=== PATIENT | female | born 1940 | race Caucasian/White ===

== ENCOUNTER → 2018-01-11 16:25 | Outpatient (REF) | payer MEDICARE, OTHER, SELFPAY | LOC: LAB 16:25 | PROVIDERS: Visit Provider Urology | DX: N99.89 Other postprocedural complications and disorders of genitourinary system (principal); R82.90 Unspecified abnormal findings in urine | CPT/HCPCS: 87086 ==

== ENCOUNTER → 2018-03-11 09:52 | Outpatient (CLI) | payer MEDICARE, OTHER, SELFPAY ==
--- NOTE | 2018-03-11 09:55 | FL_ITS ---
FL upper GI w air HISTORY: ITS.REASON: EPIGASTRIC PAIN, HX ULCER ORDERING PHYSICIAN: Delvis Colmenares PATIENT AGE: 78 years Comparison: None FINDINGS: There is a small sliding hiatal hernia. No ulcer or mass is evident within the is stomach or duodenum. Fluoroscopy time: 1 minute and 35 seconds IMPRESSION: Small sliding hiatal hernia otherwise negative upper GI
== END ==
PROVIDERS: PCP Internal Medicine; Visit Provider Internal Medicine
DX: R10.13 Epigastric pain (principal); Z87.11 Personal history of peptic ulcer disease
CPT/HCPCS: 74247

== ENCOUNTER → 2018-07-15 09:21 | Outpatient (CLI) | payer MEDICARE, OTHER, SELFPAY ==
--- NOTE | 2018-07-15 09:30 | XR_ITS ---
XR chest 2V HISTORY: ITS.REASON: COUGH,HTN ORDERING PHYSICIAN: Delvis Colmenares PATIENT AGE: 78 years COMPARISON: 04/29/2016 FINDINGS: There is mild cardiomegaly without failure. There are atelectatic changes in the left lung base. No lobar consolidation evident. There are chronic changes at the thoracolumbar junction with kyphosis similar to the previous exam. IMPRESSION: Cardiomegaly with left basilar atelectasis
== END ==
PROVIDERS: PCP Internal Medicine; Visit Provider Internal Medicine
DX: R05 Cough (principal); I10 Essential (primary) hypertension
CPT/HCPCS: 71046

== ENCOUNTER → 2018-11-15 13:44 | Outpatient (CLI) | payer MEDICARE, OTHER, SELFPAY ==
--- NOTE | 2018-11-15 14:04 | US_ITS ---
US urinary bladder CLINICAL INDICATION: Recurrent bladder infections ITS.REASON: ELEVATED CREATINE ORDERING PHYSICIAN: Delvis Colmenares PATIENT AGE: 78 years Comparison: None FINDINGS: The full bladder volume is 172 mL's. No obvious bladder mass.. Post void volume is 9 mL's. IMPRESSION: Unremarkable bladder ultrasound
--- NOTE | 2018-11-15 14:04 | US_ITS ---
US Kidney CLINICAL INDICATION: Recurrent urinary tract infection ITS.REASON: ELEVATED CREATINE ORDERING PHYSICIAN: Delvis Colmenares PATIENT AGE: 78 years Comparison: None FINDINGS: Right kidney is 9 x 5 x 6 cm. Left kidney is 9 x 4 x 4 cm. No hydronephrosis. No renal mass. There is mild bilateral renal cortical thinning. No perinephric fluid collections. IMPRESSION: Mild bilateral renal cortical thinning otherwise negative bilateral renal ultrasound
[2018-11-15 15:14] LABS: Creatinine,Serum 1.35 mg/dL (0.55-1.02)
[2018-11-15 15:17] LABS: Creatinine,Urine Random 40 mg/dL (20-320); Patient Height,Urine 65 inches; Patient Weight,Urine 175 lbs
[2018-11-15 15:30] LABS: Collection Time,Urine 24 hours; Creatinine 24 Hour,Urine 700 mg/24hr (630-2500); Creatinine Clearance Urine 33.4 mL/min (25-115); Total Volume,Urine 1750 mL (250-2400)
[2018-11-16 11:19] LABS: Total Protein 24 Hour,Urine 156 mg/24 hr (40-90); Total Protein,Urine Random 8.9 mg/dL (0.0-11.9)
== END ==
PROVIDERS: Visit Provider Internal Medicine
DX: R94.4 Abnormal results of kidney function studies (principal)
CPT/HCPCS: 36415; 76770; 76857; 82570; 82575; 84155; 84156; 84166

== ENCOUNTER → 2019-01-23 11:31 | Outpatient (CLI) | payer MEDICARE, OTHER, SELFPAY ==
[2019-01-23 11:34] LABS: Microscopic, Urine URINE MICROSCOPIC (MICROSCOPIC)
[2019-01-23 12:09] LABS: Basophils % 0.5 % (0.1-2.0); Eosinophils # 0.3 K/mm3 (0.0-0.4); Eosinophils % 5.4 % (0.1-12.0); Hematocrit 38.2 % (37.0-47.0); Lymphocytes # 1.3 K/mm3 (0.7-4.5); Lymphocytes % 20.1 % (10-50); Mean Corpuscular HGB Conc 31.5 g/dL (31.8-35.4); Mean Corpuscular Hemoglobin 31.2 pg (27.0-31.2); Mean Corpuscular Volume 98.8 fl (81-99); Monocytes # 0.3 K/mm3 (0.1-1.0); Monocytes % 4.2 % (1.7-9.3); Neutrophils # 4.4 K/mm3 (1.8-7.8); Neutrophils % 69.7 % (37.0-80.0); Platelet Count 247 K/mm3 (142-424); Red Blood Count 3.86 M/mm3 (4.20-5.40); Red Cell Distribution Width 12.4 % (11.5-17.5); White Blood Count 6.3 K/mm3 (4.8-10.8)
[2019-01-23 13:09] LABS: Appearance,Urine CLEAR (Clear); Bilirubin,Urine Negative (Negative); Blood, Urine Negative (Negative); Color,Urine YELLOW (Yellow); Glucose,Urine (UA) Negative (Negative); Ketones,Urine Negative (Negative); Leukocyte Esterase,Urine 1+ (Negative); Nitrate,Urine Negative (Negative); Protein,Urine Negative (Negative); Urobilinogen,Urine 0.2 EU/dl (0.2)
[2019-01-23 13:10] LABS: Albumin Level 3.7 gm/dL (3.4-5.0); Anion Gap 13.8 mEq/L (5-15); Blood Urea Nitrogen 22 mg/dL (7-18); Calcium 9.4 mg/dL (8.5-10.1); Carbon Dioxide 29 mmol/L (21.0-32.0); Chloride 106 mmol/L (98-107); Creatinine,Serum 1.34 mg/dL (0.55-1.02); Estimated Glomerular Filt Rate 38 ml/min (>60); GFR (African American) 46 ML/MIN (>60); Glucose 155 mg/dL (74-106); Phosphorous 3.3 mg/dL (2.4-4.9); Potassium 4.8 mmoL/L (3.5-5.1); Sodium 144 mmol/L (136-145)
[2019-01-23 13:24] LABS: Creatinine,Urine Random 112 mg/dL (20-320); Total Protein,Urine Random 14.1 mg/dL (0.0-11.9)
[2019-01-23 14:03] LABS: Bacteria,Urine Trace /lpf
[2019-01-24 06:21] LABS: Vitamin D 25 Hydroxy 11.2 ng/mL (30.0-100.0)
[2019-01-25 10:48] LABS: Parathyroid Hormone Intact 57 pg/mL (15-65)
== END ==
PROVIDERS: Visit Provider Internal Medicine Nephrology
DX: N18.3 Chronic kidney disease, stage 3 (moderate) (principal); R82.90 Unspecified abnormal findings in urine
CPT/HCPCS: 36415; 80069; 81001; 82570; 82652; 83970; 84155; 85025; 87086; 87088; 87186

== ENCOUNTER → 2019-06-07 14:16 | Outpatient (CLI) | payer MEDICARE, OTHER, SELFPAY ==
--- NOTE | 2019-06-07 14:22 | XR_ITS ---
PROCEDURE: XR CHEST 2V CLINICAL HISTORY: COUGH, SINGLE EPISODE OF HEMOPTYSIS Hemoptysis with wheezing COMPARISON: CXR CHEST(2 VIEWS-NOT PORTABLE) from 11/27/2013 CXR CHEST(2 VIEWS-NOT PORTABLE) from 04/29/2016 CXR2V XR chest 2V from 07/15/2018 FINDINGS: The cardiomediastinal silhouette and pulmonary vascularity are within normal limits. Atelectatic changes are present in the left lung base. The remaining lungs are clear Kyphosis noted in the thoracic spine at the thoracolumbar junction not significantly changed IMPRESSION: No change with no acute finding. Chronic left basilar atelectasis. Dictated by: Buzz Lin MD 06/07/2019 15:31 Electronically signed by Buzz Lin MD in [place] 06/07/2019 15:31
== END ==
PROVIDERS: PCP Internal Medicine; Visit Provider Internal Medicine
DX: R05 Cough (principal)
CPT/HCPCS: 71046

== ENCOUNTER → 2019-08-09 08:26 | Outpatient (CLI) | payer MEDICARE, OTHER, SELFPAY ==
[2019-08-09 09:06] LABS: Basophils % 0.6 % (0.1-2.0); Eosinophils # 0.4 K/mm3 (0.0-0.4); Eosinophils % 6.3 % (0.1-12.0); Hematocrit 34.5 % (37.0-47.0); Hemoglobin 10.9 g/dL (12.2-16.2); Lymphocytes # 1.4 K/mm3 (0.7-4.5); Lymphocytes % 24.4 % (10-50); Mean Corpuscular HGB Conc 31.5 g/dL (31.8-35.4); Mean Corpuscular Hemoglobin 30.4 pg (27.0-31.2); Mean Corpuscular Volume 96.5 fl (81-99); Mean Platelet Volume 7.4 fl (7.4-10.4); Monocytes # 0.3 K/mm3 (0.1-1.0); Monocytes % 4.8 % (1.7-9.3); Neutrophils # 3.7 K/mm3 (1.8-7.8); Neutrophils % 63.9 % (37.0-80.0); Platelet Count 254 K/mm3 (142-424); Red Blood Count 3.58 M/mm3 (4.20-5.40); Red Cell Distribution Width 13.2 % (11.5-17.5); White Blood Count 5.9 K/mm3 (4.8-10.8)
[2019-08-09 09:38] LABS: Creatinine,Urine Random 115 mg/dL (Not Estab.)
[2019-08-09 10:00] LABS: Albumin Level 3.8 g/dl (3.5-5.0); Chloride 104 mmol/L (98-107); Potassium 5.7 mmoL/L (3.5-5.1); Sodium 136 mmol/L (136-145)
[2019-08-09 10:03] LABS: Anion Gap 11.7 mEq/L (5-15); Blood Urea Nitrogen 36 mg/dl (7-17); Calcium 9.5 mg/dl (8.4-10.2); Carbon Dioxide 26 mmol/L (22.0-30.0); Estimated Glomerular Filt Rate 34 ml/min (>60); GFR (African American) 41 ML/MIN (>60); Glucose 228 mg/dl (74-100); Phosphorous 3.7 mg/dl (2.5-4.5)
[2019-08-10 11:53] LABS: Vitamin D 25 Hydroxy 31.1 ng/mL (30.0-100.0)
== END ==
PROVIDERS: Visit Provider Internal Medicine Nephrology
DX: N18.3 Chronic kidney disease, stage 3 (moderate) (principal)
CPT/HCPCS: 36415; 80069; 82570; 82652; 84155; 85025

== ENCOUNTER → 2020-06-10 12:09 | Outpatient (CLI) | payer MEDICARE, SELFPAY ==
[2020-06-10 13:28] LABS: Chloride 105 mmol/L (98-107)
[2020-06-10 13:29] LABS: Albumin Level 4.5 g/dl (3.5-5.0); Potassium 5.1 mmoL/L (3.5-5.1); Sodium 141 mmol/L (136-145)
[2020-06-10 13:32] LABS: Anion Gap 10.1 mEq/L (5-15); Blood Urea Nitrogen 24 mg/dl (7-17); Calcium 9.7 mg/dl (8.4-10.2); Carbon Dioxide 31 mmol/L (22.0-30.0); Estimated Glomerular Filt Rate 36 ml/min (>60); GFR (African American) 44 ML/MIN (>60); Glucose 131 mg/dl (74-100)
[2020-06-10 13:49] LABS: 25-OH Vitamin D, Total 39.4 ng/mL (30-100)
== END ==
PROVIDERS: Visit Provider Internal Medicine Nephrology
DX: N18.30 Chronic kidney disease, stage 3 unspecified (principal)
CPT/HCPCS: 36415; 80069; 82306

== ENCOUNTER → 2020-08-28 14:59 | Outpatient (CLI) | payer MEDICARE, SELFPAY ==
--- NOTE | 2020-08-28 15:14 | XR_ITS ---
PROCEDURE: XR FOOT RT MIN 3V CLINICAL INDICATION: RT FOOT PAIN, Pain and redness COMPARISON: No exams were available for comparison FINDINGS: No acute displaced fractures evident. There is cortical thickening involving the shaft of the 4th metatarsal. Cystic changes are present in the cuneiform some and in the navicular suggesting sub articular cyst/geodes. Mild osteoarthritic changes are present involving the navicular cuneiform joint Mild hallux valgus. No bony destructive process apparent. Other findings:None. IMPRESSION: 1. Degenerative changes as described above. 2. Cortical thickening of the mid shaft of the 4th metatarsal. This could be related to old fracture or stress fracture. Dictated by: Buzz Lin MD 08/28/2020 15:27 Buzz Lin MD in [place] 08/28/2020 15:27
[2020-08-28 15:22] LABS: Basophils % 0.4 % (0.1-2.0); Eosinophils # 0.4 K/mm3 (0.0-0.4); Eosinophils % 4.8 % (0.1-12.0); Hematocrit 34.5 % (37.0-47.0); Hemoglobin 11.1 g/dL (12.2-16.2); Lymphocytes # 1.5 K/mm3 (0.7-4.5); Lymphocytes % 19.8 % (10-50); Mean Corpuscular HGB Conc 32.3 g/dL (31.8-35.4); Mean Corpuscular Hemoglobin 30.9 pg (27.0-31.2); Mean Corpuscular Volume 95.7 fl (81-99); Mean Platelet Volume 7.1 fl (7.4-10.4); Monocytes # 0.4 K/mm3 (0.1-1.0); Neutrophils # 5.2 K/mm3 (1.8-7.8); Platelet Count 199 K/mm3 (142-424); Red Blood Count 3.61 M/mm3 (4.20-5.40); Red Cell Distribution Width 13.2 % (11.5-17.5); White Blood Count 7.4 K/mm3 (4.8-10.8)
[2020-08-28 15:32] LABS: Anion Gap 12.7 mEq/L (5-15); Blood Urea Nitrogen 29 mg/dl (7-17); Calcium 9.3 mg/dl (8.4-10.2); Carbon Dioxide 26 mmol/L (22.0-30.0); Chloride 105 mmol/L (98-107); Estimated Glomerular Filt Rate 33 ml/min (>60); GFR (African American) 41 ML/MIN (>60); Glucose 101 mg/dl (74-100); Potassium 5.7 mmoL/L (3.5-5.1); Sodium 138 mmol/L (136-145); Uric Acid 8.8 mg/dl (2.5-6.2)
[2020-08-28 15:44] LABS: Erythrocyte Sedimentation Rate 78 mm/hr (0-30)
== END ==
PROVIDERS: Visit Provider Internal Medicine
DX: M79.671 Pain in right foot (principal); N18.30 Chronic kidney disease, stage 3 unspecified
CPT/HCPCS: 36415; 73630; 80048; 84550; 85025; 85651

== ENCOUNTER → 2020-09-02 14:39 | Outpatient (CLI) | payer MEDICARE, SELFPAY ==
--- NOTE | 2020-09-02 14:43 | MR_ITS ---
PROCEDURE INFORMATION: Exam: MR Right Lower Extremity Other Than Joint Without Contrast; Foot Exam date and time: 09/02/2020 2:43 PM Age: 80 years old Clinical indication: Right; Patient HX: RT foot pain with reddness and swelling x1week. No injury or trauma; Additional info: Foot pain, edema TECHNIQUE: Imaging protocol: MR of the Right lower extremity without contrast. Exam focused on the foot. COMPARISON: CR XR FOOT RT MIN 3V 08/28/2020 3:16 PM FINDINGS: Bones and cartilage: Mild osteoarthritis involves the fourth tarsometatarsal joint Flexion deformities involve the toes. There is no evidence of osteomyelitis. There is severe primary osteoarthritis of the second and third tarsometatarsal joints. Thickening of the fourth metatarsal cortex also reported on radiographs suggests remote trauma. Joint spaces: A mild effusion involves the ankle joint. LIGAMENTS: Lisfranc ligament: Unremarkable. No evidence of tear. TENDONS: Flexor tendons of foot: Mild tenosynovitis involves the flexor digitorum longus tendon. Tibialis posterior tendon: Moderate tenosynovitis involves the tibialis posterior tendon. Peroneal tendons: Mild tenosynovitis involves the peroneal tendon sheath. Extensor tendons of foot: Unremarkable. No evidence of tear. Tibialis anterior tendon: Unremarkable as visualized. Achilles tendon: Mild thickening involves the distal Achilles tendon, consistent with mild tendinopathy. Tarsal canal (Sinus tarsi): The sinus tarsi has normal fat signal. Tarsal tunnel: Unremarkable. Muscles: The foot muscles demonstrate mild edema and mild atrophy. Soft tissues: Diffuse subcutaneous edema that is moderate at the level of the ankle and mild in the foot is nonspecific and could represent cellulitis or vascular insufficiency. There is no abscess. Plantar fascia: Mild thickening of the proximal plantar fascia has no significant surrounding edema, consistent with chronic mild plantar fasciitis (fasciopathy). IMPRESSION: 1. Rdum-df-mwanrsok diffuse subcutaneous edema indeterminate for cellulitis versus vascular insufficiency. 2. 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 3. Multifocal mild to moderate tenosynovitis. 4. Mild Achilles tendinopathy. 5. Chronic mild plantar fasciitis (fasciopathy). 6. No acute fracture, abscess, or osteomyelitis.
== END ==
PROVIDERS: PCP Internal Medicine; Visit Provider Internal Medicine
DX: M79.671 Pain in right foot (principal); R60.0 Localized edema
CPT/HCPCS: 73718

== ENCOUNTER → 2020-09-16 15:11 | Outpatient (CLI) | payer MEDICARE, SELFPAY ==
[2020-09-16 16:15] VITALS: PULSE 72
== END ==
PROVIDERS: PCP Internal Medicine; Visit Provider Internal Medicine Pulmonary Disease
DX: R06.09 Other forms of dyspnea (principal)
CPT/HCPCS: 94060; 94640; 94726; 94729

== ENCOUNTER → 2021-05-05 13:18 | Outpatient (CLI) | payer MEDICARE, SELFPAY ==
[2021-05-05 13:57] LABS: Basophils % 0.5 % (0.1-2.0); Eosinophils # 0.4 K/mm3 (0.0-0.4); Eosinophils % 6.3 % (0.1-12.0); Hematocrit 35.8 % (37.0-47.0); Hemoglobin 11.3 g/dL (12.2-16.2); Lymphocytes # 1.3 K/mm3 (0.7-4.5); Lymphocytes % 21.9 % (10-50); Mean Corpuscular HGB Conc 31.6 g/dL (31.8-35.4); Mean Corpuscular Hemoglobin 30.7 pg (27.0-31.2); Mean Corpuscular Volume 97.2 fl (81-99); Mean Platelet Volume 8.6 fl (7.4-10.4); Monocytes # 0.4 K/mm3 (0.1-1.0); Monocytes % 6.3 % (1.7-9.3); Neutrophils # 3.9 K/mm3 (1.8-7.8); Platelet Count 245 K/mm3 (142-424); Red Blood Count 3.69 M/mm3 (4.20-5.40); Red Cell Distribution Width 13.3 % (11.5-17.5)
[2021-05-05 14:45] LABS: Chloride 104 mmol/L (98-107); Potassium 4.7 mmoL/L (3.5-5.1); Sodium 140 mmol/L (136-145)
[2021-05-05 14:47] LABS: Blood Urea Nitrogen 19 mg/dl (7-17); Estimated Glomerular Filt Rate 43 ml/min (>60); GFR (African American) 52 ML/MIN (>60)
[2021-05-05 14:48] LABS: Alanine Aminotransferase 13 U/L (12-78); Albumin Level 3.8 g/dl (3.5-5.0); Albumin/Globulin Ratio 1.7 (1.1-1.8); Alkaline Phosphatase 95 U/L (38-126); Anion Gap 7.7 mEq/L (5-15); Aspartate Amino Transferase 23 U/L (14-36); Bilirubin,Total 0.4 mg/dl (0.2-1.3); Calcium 8.9 mg/dl (8.4-10.2); Carbon Dioxide 33 mmol/L (22.0-30.0); Globulin 2.2 g/dL (1.3-3.2); Glucose 106 mg/dl (74-100)
[2021-05-05 14:58] LABS: Creatinine,Urine Random 83 mg/dL (Not Estab.)
[2021-05-05 16:02] LABS: Hemoglobin A1C 5.9 % (4.0-6.0)
== END ==
PROVIDERS: Visit Provider Internal Medicine
DX: I10 Essential (primary) hypertension (principal); N19 Unspecified kidney failure; E11.42 Type 2 diabetes mellitus with diabetic polyneuropathy; M15.0 Primary generalized (osteo)arthritis; Z79.84 Long term (current) use of oral hypoglycemic drugs
CPT/HCPCS: 80053; 82043; 82570; 83036; 85025

== ENCOUNTER → 2021-06-03 08:51 | Outpatient (CLI) | payer MEDICARE, SELFPAY ==
--- NOTE | 2021-06-03 08:58 | XR_ITS ---
FINAL REPORT TECHNIQUE: Bone mineral density was calculated of the lumbar spine and hip. CLINICAL HISTORY: . 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 Using the left hip, the bone mineral density of the femoral neck is 0.661 g/cm2, corresponding to a T-score of -1.7. There is a 13% risk of major osteoporotic fracture and 3.3% risk of hip fracture based on FRAX data NOTE: T-score: Standard deviation compared with peak bone mass of young adult mean. *Following the recommendations of the International Society of Bone densitometry, classification of hip BMD is based on the lower of two T-scores; total hip or femoral neck. IMPRESSION: Diminished bone mineral density of the lumbar spine and left hip consistent with osteopenia. There is a 13% risk of major osteoporotic fracture and 3.3% risk of hip fracture based on FRAX data. Reviewed, Interpreted and Dictated by Franco Valencia III, MD Transcribed by Geraldine Garcia Authenticated by Franco Valencia III, MD on 06/03/2021 11:40:53 AM [facility]
== END ==
PROVIDERS: PCP Internal Medicine; Visit Provider Internal Medicine Nephrology
DX: Z78.0 Asymptomatic menopausal state (principal); N18.30 Chronic kidney disease, stage 3 unspecified
CPT/HCPCS: 77080

== ENCOUNTER → 2021-06-19 09:36 | Outpatient (CLI) | payer MEDICARE, SELFPAY ==
[2021-06-19 10:36] LABS: Basophils % 0.7 % (0.1-2.0); Eosinophils # 0.5 K/mm3 (0.0-0.4); Eosinophils % 8.3 % (0.1-12.0); Hematocrit 34.6 % (37.0-47.0); Hemoglobin 11.3 g/dL (12.2-16.2); Lymphocytes # 1.2 K/mm3 (0.7-4.5); Lymphocytes % 19.6 % (10-50); Mean Corpuscular HGB Conc 32.5 g/dL (31.8-35.4); Mean Corpuscular Hemoglobin 30.5 pg (27.0-31.2); Mean Corpuscular Volume 93.8 fl (81-99); Mean Platelet Volume 7.1 fl (7.4-10.4); Monocytes # 0.4 K/mm3 (0.1-1.0); Monocytes % 5.8 % (1.7-9.3); Neutrophils % 65.7 % (37.0-80.0); Platelet Count 232 K/mm3 (142-424); Red Blood Count 3.69 M/mm3 (4.20-5.40); Red Cell Distribution Width 12.6 % (11.5-17.5)
[2021-06-19 11:38] LABS: Anion Gap 10.7 mEq/L (5-15); Blood Urea Nitrogen 29 mg/dl (7-17); Carbon Dioxide 30 mmol/L (22.0-30.0); Chloride 103 mmol/L (98-107); Estimated Glomerular Filt Rate 36 ml/min (>60); GFR (African American) 44 ML/MIN (>60); Glucose 127 mg/dl (74-100); Phosphorous 3.8 mg/dl (2.5-4.5); Potassium 4.7 mmoL/L (3.5-5.1); Sodium 139 mmol/L (136-145)
[2021-06-19 11:50] LABS: Intact Parathyroid Hormone 102.1 pg/mL (7.5-53.5)
[2021-06-19 11:56] LABS: 25-OH Vitamin D, Total 41.2 ng/mL (30-100)
== END ==
PROVIDERS: Visit Provider Internal Medicine Nephrology
DX: N18.30 Chronic kidney disease, stage 3 unspecified (principal)
CPT/HCPCS: 36415; 80069; 82306; 83970; 85025

== ENCOUNTER → 2021-06-23 11:48 | Outpatient (POV) | payer MEDICARE, SELFPAY | PROVIDERS: Visit Provider Internal Medicine Nephrology | DX: Z00.00 Encounter for general adult medical examination without abnormal findings (principal) ==

== ENCOUNTER → 2021-09-15 14:19 | Outpatient (CLI) | payer MEDICARE, OTHER, SELFPAY | PROVIDERS: PCP Internal Medicine; Visit Provider Internal Medicine | DX: R39.0 Extravasation of urine (principal); B96.20 Unspecified Escherichia coli [E. coli] as the cause of diseases classified elsewhere | CPT/HCPCS: 87086; 87088; 87186 ==

== ENCOUNTER → 2021-11-05 14:17 | Outpatient (CLI) | payer MEDICARE, OTHER, SELFPAY ==
[2021-11-05 15:16] LABS: Chloride 106 mmol/L (98-107); Potassium 4.8 mmoL/L (3.5-5.1); Sodium 138 mmol/L (136-145)
[2021-11-05 15:18] LABS: Blood Urea Nitrogen 32 mg/dl (7-17); Estimated Glomerular Filt Rate 36 ml/min (>60); GFR (African American) 44 ML/MIN (>60)
[2021-11-05 15:19] LABS: Alanine Aminotransferase 12 U/L (12-78); Albumin Level 3.7 g/dl (3.5-5.0); Albumin/Globulin Ratio 1.8 (1.1-1.8); Alkaline Phosphatase 72 U/L (38-126); Anion Gap 8.8 mEq/L (5-15); Aspartate Amino Transferase 25 U/L (14-36); Bilirubin,Total 0.3 mg/dl (0.2-1.3); Carbon Dioxide 28 mmol/L (22.0-30.0); Cholesterol 151 mg/dl (140-200); Globulin 2.1 g/dL (1.3-3.2); Total Protein,Serum 5.8 g/dl (6.3-8.2); Triglycerides 124 mg/dl (30-150); VLDL Cholesterol 25 mg/dL (0-40)
[2021-11-05 15:20] LABS: Calcium 8.7 mg/dl (8.4-10.2); Chol/HDL Ratio 2.8 (1-3.5); Glucose 119 mg/dl (74-100); HDL Cholesterol 54 mg/dl (40-60)
[2021-11-05 15:21] LABS: Hemoglobin A1C 6.2 % (4.0-6.0)
[2021-11-05 15:29] LABS: Microalbumin/Creatinine Ratio 8.3
[2021-11-05 15:31] LABS: Direct LDL Cholesterol 80.11 mg/dL (100-129)
[2021-11-05 15:34] LABS: Creatinine,Urine Random 80 mg/dL (Not Estab.)
== END ==
PROVIDERS: PCP Internal Medicine; Visit Provider Internal Medicine
DX: E11.42 Type 2 diabetes mellitus with diabetic polyneuropathy (principal); I10 Essential (primary) hypertension; E78.5 Hyperlipidemia, unspecified; N39.0 Urinary tract infection, site not specified; M15.0 Primary generalized (osteo)arthritis
CPT/HCPCS: 80053; 80061; 82043; 82570; 83036

== ENCOUNTER → 2021-12-16 16:44 | Outpatient (CLI) | payer MEDICARE, OTHER, SELFPAY | PROVIDERS: PCP Internal Medicine; Visit Provider Internal Medicine | DX: N39.0 Urinary tract infection, site not specified (principal) | CPT/HCPCS: 87086 ==

== ENCOUNTER → 2022-03-16 10:02 | Outpatient (CLI) | payer MEDICARE, OTHER, SELFPAY ==
[2022-03-16 10:12] LABS: Microscopic, Urine URINE MICROSCOPIC (MICROSCOPIC)
[2022-03-16 10:38] LABS: Appearance,Urine CLEAR (Clear); Basophils # 0.1 K/mm3 (0-0.2); Basophils % 0.8 % (0.1-2.0); Bilirubin,Urine Negative (Negative); Blood, Urine TRACE-I (Negative); Color,Urine YELLOW (Yellow); Eosinophils # 0.3 K/mm3 (0.0-0.4); Eosinophils % 4.7 % (0.1-12.0); Glucose,Urine (UA) Negative (Negative); Hematocrit 35.7 % (37.0-47.0); Hemoglobin 11.4 g/dL (12.2-16.2); Ketones,Urine Negative (Negative); Leukocyte Esterase,Urine TRACE (Negative); Lymphocytes # 1.5 K/mm3 (0.7-4.5); Lymphocytes % 22.3 % (10-50); Mean Corpuscular Hemoglobin 30.6 pg (27.0-31.2); Mean Corpuscular Volume 95.8 fl (81-99); Mean Platelet Volume 8.2 fl (7.4-10.4); Monocytes # 0.4 K/mm3 (0.1-1.0); Monocytes % 5.3 % (1.7-9.3); Neutrophils # 4.5 K/mm3 (1.8-7.8); Neutrophils % 66.9 % (37.0-80.0); Nitrate,Urine Negative (Negative); Platelet Count 242 K/mm3 (142-424); Protein,Urine Negative (Negative); Red Blood Count 3.73 M/mm3 (4.20-5.40); Red Cell Distribution Width 13.8 % (11.5-17.5); Urobilinogen,Urine 0.2 EU/dl (0.2); White Blood Count 6.7 K/mm3 (4.8-10.8)
[2022-03-16 10:52] LABS: Bacteria,Urine Trace /lpf; RBC,Urine Occasional #/hpf (0-3); Squamous Epithelial Cell,Urine Occasional #/hpf (0-5)
[2022-03-16 10:59] LABS: Creatinine,Urine Random 103 mg/dL (Not Estab.)
[2022-03-16 11:05] LABS: Iron 63 ug/dL (37-170)
[2022-03-16 11:15] LABS: Total Iron Binding Capacity 318 ug/dL (265-497)
[2022-03-16 11:40] LABS: Ferritin 15.9 ng/ml (11.1-264)
[2022-03-19 21:20] LABS: C-Telopeptide Serum 300 pg/mL (.)
[2022-03-23 12:47] LABS: Albumin Level 3.9 g/dl (3.5-5.0); Chloride 105 mmol/L (98-107); Potassium 5.1 mmoL/L (3.5-5.1); Sodium 144 mmol/L (136-145)
[2022-03-23 12:49] LABS: Blood Urea Nitrogen 28 mg/dl (7-17); Estimated Glomerular Filt Rate 33 ml/min (>60); GFR (African American) 40 ML/MIN (>60)
[2022-03-23 12:50] LABS: Anion Gap 24.1 mEq/L (5-15); Calcium 9.7 mg/dl (8.4-10.2); Carbon Dioxide 20 mmol/L (22.0-30.0); Glucose 140 mg/dl (74-100); Phosphorous 3.8 mg/dl (2.5-4.5)
== END ==
PROVIDERS: PCP Internal Medicine; Visit Provider Internal Medicine Nephrology
DX: N18.30 Chronic kidney disease, stage 3 unspecified (principal); E11.22 Type 2 diabetes mellitus with diabetic chronic kidney disease; M81.0 Age-related osteoporosis without current pathological fracture; Z79.84 Long term (current) use of oral hypoglycemic drugs
CPT/HCPCS: 36415; 80069; 81001; 82523; 82570; 82728; 83540; 83550; 84075; 84080; 84155; 85025

== ENCOUNTER → 2022-03-18 11:53 | Outpatient (CLI) | payer MEDICARE, OTHER, SELFPAY ==
[2022-03-18 12:42] LABS: Basophils # 0.1 K/mm3 (0-0.2); Basophils % 0.8 % (0.1-2.0); Eosinophils # 0.3 K/mm3 (0.0-0.4); Eosinophils % 4.8 % (0.1-12.0); Hematocrit 33.9 % (37.0-47.0); Hemoglobin 11.2 g/dL (12.2-16.2); Lymphocytes # 1.8 K/mm3 (0.7-4.5); Mean Corpuscular HGB Conc 33.1 g/dL (31.8-35.4); Mean Corpuscular Hemoglobin 31.5 pg (27.0-31.2); Mean Corpuscular Volume 95.2 fl (81-99); Mean Platelet Volume 8.1 fl (7.4-10.4); Monocytes # 0.3 K/mm3 (0.1-1.0); Monocytes % 5.9 % (1.7-9.3); Neutrophils # 3.1 K/mm3 (1.8-7.8); Neutrophils % 56.5 % (37.0-80.0); Platelet Count 244 K/mm3 (142-424); Red Blood Count 3.56 M/mm3 (4.20-5.40); Red Cell Distribution Width 14.3 % (11.5-17.5); White Blood Count 5.5 K/mm3 (4.8-10.8)
[2022-03-18 13:42] LABS: Creatine Kinase 43 U/L (30-135)
[2022-03-18 14:12] LABS: Thyroid Stimulating Hormone 1.88 uIU/mL (0.465-4.68)
[2022-03-18 14:31] LABS: Vitamin B12 180 pg/mL (239-931)
[2022-03-18 15:39] LABS: Erythrocyte Sedimentation Rate 28 mm/hr (0-30)
== END ==
PROVIDERS: PCP Internal Medicine; Visit Provider Internal Medicine
DX: I10 Essential (primary) hypertension (principal); E11.42 Type 2 diabetes mellitus with diabetic polyneuropathy; K03.9 Disease of hard tissues of teeth, unspecified; M79.604 Pain in right leg; M79.605 Pain in left leg; M47.27 Other spondylosis with radiculopathy, lumbosacral region; Z79.84 Long term (current) use of oral hypoglycemic drugs
CPT/HCPCS: 82550; 82607; 84443; 85025; 85651

== ENCOUNTER → 2022-03-23 12:42 | Outpatient (POV) | payer MEDICARE, OTHER, SELFPAY | PROVIDERS: Visit Provider Internal Medicine Nephrology | DX: Z00.00 Encounter for general adult medical examination without abnormal findings (principal) ==

== ENCOUNTER → 2022-05-20 12:44 | Outpatient (CLI) | payer MEDICARE, OTHER, SELFPAY ==
[2022-05-20 14:17] LABS: Basophils % 0.7 % (0.1-2.0); Chloride 106 mmol/L (98-107); Eosinophils # 0.3 K/mm3 (0.0-0.4); Eosinophils % 5.3 % (0.1-12.0); Hematocrit 35.2 % (37.0-47.0); Hemoglobin 11.5 g/dL (12.2-16.2); Lymphocytes # 1.6 K/mm3 (0.7-4.5); Lymphocytes % 27.5 % (10-50); Mean Corpuscular HGB Conc 32.6 g/dL (31.8-35.4); Mean Corpuscular Hemoglobin 30.8 pg (27.0-31.2); Mean Corpuscular Volume 94.6 fl (81-99); Mean Platelet Volume 8.5 fl (7.4-10.4); Monocytes # 0.4 K/mm3 (0.1-1.0); Monocytes % 6.7 % (1.7-9.3); Neutrophils # 3.4 K/mm3 (1.8-7.8); Neutrophils % 59.7 % (37.0-80.0); Platelet Count 250 K/mm3 (142-424); Potassium 4.7 mmoL/L (3.5-5.1); Red Blood Count 3.72 M/mm3 (4.20-5.40); Red Cell Distribution Width 13.4 % (11.5-17.5); Sodium 139 mmol/L (136-145); White Blood Count 5.8 K/mm3 (4.8-10.8)
[2022-05-20 14:19] LABS: Alanine Aminotransferase 16 U/L (12-78); Blood Urea Nitrogen 28 mg/dl (7-17); Estimated Glomerular Filt Rate 36 ml/min (>60); GFR (African American) 44 ML/MIN (>60)
[2022-05-20 14:20] LABS: Albumin/Globulin Ratio 1.9 (1.1-1.8); Alkaline Phosphatase 74 U/L (38-126); Anion Gap 9.7 mEq/L (5-15); Aspartate Amino Transferase 26 U/L (14-36); Bilirubin,Total 0.6 mg/dl (0.2-1.3); Calcium 8.6 mg/dl (8.4-10.2); Carbon Dioxide 28 mmol/L (22.0-30.0); Chol/HDL Ratio 2.7 (1-3.5); Cholesterol 162 mg/dl (140-200); Globulin 2.1 g/dL (1.3-3.2); Glucose 108 mg/dl (74-100); HDL Cholesterol 60 mg/dl (40-60); Total Protein,Serum 6.1 g/dl (6.3-8.2); Triglycerides 126 mg/dl (30-150); VLDL Cholesterol 25 mg/dL (0-40)
== END ==
PROVIDERS: PCP Internal Medicine; Visit Provider Internal Medicine
DX: I10 Essential (primary) hypertension (principal); N18.30 Chronic kidney disease, stage 3 unspecified; E53.8 Deficiency of other specified B group vitamins; E78.5 Hyperlipidemia, unspecified; E11.42 Type 2 diabetes mellitus with diabetic polyneuropathy; M15.0 Primary generalized (osteo)arthritis; Z79.84 Long term (current) use of oral hypoglycemic drugs
CPT/HCPCS: 80053; 80061; 83036; 85025

== ENCOUNTER 2022-09-16 12:35 | Emergency (ER) | payer MEDICARE, SELFPAY ==
[2022-09-16 12:42] VITALS: BP 146/71; PULSE 60; RESP 18; TEMP 36.6; O2SAT 95; BMI 31.8
--- NOTE | 2022-09-16 12:42 | XR_ITS ---
FINAL REPORT CLINICAL HISTORY: fall FINDINGS: Right shoulder Four views were obtained. There is a comminuted, mildly impacted fracture of the humeral head and neck. There is no dislocation. There is mild acromioclavicular and glenohumeral joint degenerative change. IMPRESSION: Fractures as above. Reviewed, Interpreted and Dictated by Franco Valencia III, MD Transcribed by Geraldine Garcia Authenticated and [facility]
--- NOTE | 2022-09-16 12:47 | XR_ITS ---
FINAL REPORT CLINICAL HISTORY: fall FINDINGS: Right clavicle Two views were obtained. There are mildly comminuted fractures of the humeral head and neck. No acute clavicle fracture is identified. There is mild AC joint degenerative change. IMPRESSION: Fractures as above. Reviewed, Interpreted and Dictated by Franco Valencia III, MD Transcribed by Geraldine Garcia Authenticated and [facility]
--- NOTE | 2022-09-16 12:47 | XR_ITS ---
FINAL REPORT CLINICAL HISTORY: fall FINDINGS: Right humerus Two views were obtained. There are comminuted fractures of the humeral head and neck. The distal humerus appears intact. IMPRESSION: Comminuted fractures of the humeral head and neck. Reviewed, Interpreted and Dictated by Franco Valencia III, MD Transcribed by Geraldine Garcia Authenticated and [facility]
--- NOTE | 2022-09-16 13:13 | EXP.UTC ---
Discharge Plan Disposition Patient Disposition: Home, Self-Care Condition: Good Prescriptions Prescriptions: No Action losartan 100 mg tablet 100 mg PO DAILY melatonin 10 mg tablet 10 mg PO DAILY cholecalciferol (vitamin D3) 50 mcg (2,000 unit) capsule 50 mcg PO DAILY albuterol sulfate 90 mcg/actuation HFA aerosol inhaler 1 inh INHALATION QID PRN (Reason: shortness of breath or wheezing) Qty: 8.5 12RF azelastine 205.5 mcg (0.15 %) spray,non-aerosol 2 spray INTRANASAL HS Qty: 30 6RF Rx Instructions: administer into each nostril fluticasone propionate [Flonase Allergy Relief] 50 mcg/actuation spray,suspension 1 spray INTRANASAL DAILY Qty: 16 6RF Rx Instructions: administer into each nostril Zyrtec 10 mg capsule 5 mg PO DAILY PRN (Reason: allergy symptoms) Qty: 30 0RF Dulera 100-5 mcg/actuation HFA aerosol inhaler 2 puff INHALATION BID Qty: 13 12RF omeprazole 40 mg capsule,delayed release(DR/EC) 40 mg PO DAILY Qty: 30 12RF atenolol 25 mg tablet 25 mg PO DAILY citalopram 20 mg tablet 20 mg PO DAILY gabapentin 300 mg capsule 300 mg PO Q8H metformin 500 mg tablet 500 mg PO BID tramadol 50 mg tablet 50 mg PO Q6H PRN hydrochlorothiazide 25 mg tablet 12.5 mg PO DAILY lovastatin 10 mg tablet 40 mg PO DAILY Referrals Follow up/Referrals: Delvis Colmenares MD [Primary Care Provider] - See instructions Reece Suazo MD [Physician] - 09/18/22 11:00 am (your appointment) Activity Restrictions/Add. Instructions Additional Instructions/Restrictions: *RICE, Rest the extremity, Ice 15-20 minutes 3-4 times daily, Compress- wear the juan antonio wrap as discussed as much as possible to help reduce swelling and pain, Elevate the extremity when at rest *Sling/Shoulder immobilizer is for support and help control swelling, Be sure that is not to tight but not to loose either *Elevate when resting? * Tylenol for pain Immediately follow up with your family doctor for new or worsening of symptoms, or no noticeable improvement over the next 3-5 days You have an appointment in the [facility] for [facility] at 11am with Dr Suazo Clinical Impressions Clinical Impression: Fracture of humeral head Instructions Patient Instructions: How To Perform RICE (Rest, Ice, Compress, Elevate), DI for Humeral Fracture, How to Use a Shoulder Immobilizer Discharge ED Provider: Andreina Lozano [facility] General Stated complaint: Fall 09/16 RT shoulder pain Mode of Arrival: Ambulatory Source of Information: Patient Limitations: No Limitations Time Seen by Provider: 09/16/22 13:14 Description of Symptoms (Recalled from Triage Doc. by RN): Patient states she was at [facility] in [place] when she tripped over her bags and fell injuring her right shoulder. History of Present Illness Provider Complaint: Patient states that she was in the parking lot of [facility] in [place] when she tripped over her bags and fell landing on her right shoulder States that since falling she cannot move her right upper arm/shoulder area due to severe pain denies any other injury Related Data Home Medications Medication Instructions Recorded Confirmed atenolol 25 mg tablet 25 mg PO DAILY 07/06/17 09/24/20 citalopram 20 mg tablet 20 mg PO DAILY 07/06/17 09/24/20 gabapentin 300 mg capsule 300 mg PO Q8H 07/06/17 09/24/20 metformin 500 mg tablet 500 mg PO BID 07/06/17 09/24/20 tramadol 50 mg tablet 50 mg PO Q6H PRN 07/06/17 09/24/20 cholecalciferol (vitamin D3) 50 50 mcg PO DAILY 08/23/20 09/24/20 mcg (2,000 unit) capsule hydrochlorothiazide 25 mg tablet 12.5 mg PO DAILY 08/23/20 09/24/20 losartan 100 mg tablet 100 mg PO DAILY 08/23/20 09/24/20 lovastatin 10 mg tablet 40 mg PO DAILY 08/23/20 09/24/20 melatonin 10 mg tablet 10 mg PO DAILY 08/23/20 09/24/20 Previous Rx's Medication Instructions Recorded albuterol sulfate 90 mcg/actuation 1 inh inhalation QID PRN
[2022-09-16 15:21] VITALS: BP 146/71; PULSE 60; RESP 18; TEMP 36.6
== END 2022-09-16 15:23 | disposition home or self-care (01) ==
PROVIDERS: Emergency Provider Nurse Practitioner; PCP Internal Medicine
DX: S42.291A Other displaced fracture of upper end of right humerus, initial encounter for closed fracture (principal); W01.10XA Fall on same level from slipping, tripping and stumbling with subsequent striking against unspecified object, initial encounter
CPT/HCPCS: 73000; 73030; 73060; 99204; 99212; G0463

== ENCOUNTER → 2022-10-07 10:50 | Outpatient (CLI) | payer MEDICARE, SELFPAY ==
--- NOTE | 2022-10-07 10:56 | XR_ITS ---
FINAL REPORT CLINICAL HISTORY: rt shoulder pain, fall 3 weeks ago COMPARISON: 09/16/2022 FINDINGS: Two views of the right shoulder show show redemonstration of comminuted fractures of the humeral head and neck with mild displacement, similar to the prior study. There is inferior displacement of the humeral head probably due to pseudosubluxation from joint effusion. IMPRESSION: Stable appearance comminuted proximal humeral fractures. Reviewed, Interpreted and Dictated by Yo Loomis MD Transcribed by Karla Caldera Authenticated and [facility]
== END ==
PROVIDERS: PCP Internal Medicine; Visit Provider Orthopaedic Surgery
DX: S42.201A Unspecified fracture of upper end of right humerus, initial encounter for closed fracture (principal); M25.511 Pain in right shoulder
CPT/HCPCS: 73030

== ENCOUNTER → 2022-11-04 12:58 | Outpatient (CLI) | payer MEDICARE, SELFPAY ==
--- NOTE | 2022-11-04 13:02 | XR_ITS ---
FINAL REPORT CLINICAL HISTORY: Rt shoulder pain COMPARISON: 10/07/2022 FINDINGS: Right shoulder Three views were obtained. There is no acute fracture or dislocation. There are subacute fractures of the humeral head and neck. There is increased callus formation since the prior. There are mild AC and glenohumeral joint degenerative changes. There is inferior subluxation of the humerus at the glenohumeral joint which may reflect a joint effusion. IMPRESSION: Interval healing of the proximal humeral fractures. Reviewed, Interpreted and Dictated by Franco Valencia III, MD Transcribed by Geraldine Garcia Authenticated and [facility]
== END ==
PROVIDERS: PCP Internal Medicine; Visit Provider Orthopaedic Surgery
DX: S42.201A Unspecified fracture of upper end of right humerus, initial encounter for closed fracture (principal); M25.511 Pain in right shoulder
CPT/HCPCS: 73030

== ENCOUNTER → 2022-11-17 12:13 | Outpatient (CLI) | payer MEDICARE, SELFPAY ==
[2022-11-17 13:24] LABS: Hemoglobin A1C 5.9 % (4.0-6.0)
[2022-11-17 13:44] LABS: Alanine Aminotransferase 15 U/L (12-78); Albumin/Globulin Ratio 1.9 (1.1-1.8); Alkaline Phosphatase 98 U/L (38-126); Anion Gap 10.2 mEq/L (5-15); Aspartate Amino Transferase 23 U/L (14-36); Bilirubin,Total 0.4 mg/dl (0.2-1.3); Blood Urea Nitrogen 28 mg/dl (7-17); Calcium 9.1 mg/dl (8.4-10.2); Carbon Dioxide 31 mmol/L (22.0-30.0); Chloride 105 mmol/L (98-107); Chol/HDL Ratio 2.5 (1-3.5); Cholesterol 145 mg/dl (140-200); Estimated Glomerular Filt Rate 39 ml/min (>60); GFR (African American) 48 ML/MIN (>60); Globulin 2.1 g/dL (1.3-3.2); Glucose 105 mg/dl (74-100); HDL Cholesterol 59 mg/dl (40-60); Potassium 5.2 mmoL/L (3.5-5.1); Sodium 141 mmol/L (136-145); Total Protein,Serum 6.1 g/dl (6.3-8.2); Triglycerides 150 mg/dl (30-150); VLDL Cholesterol 30 mg/dL (0-40)
[2022-11-17 13:56] LABS: Direct LDL Cholesterol 67.03 mg/dL (100-129)
[2022-11-17 14:15] LABS: Creatinine,Urine Random 75 mg/dL (Not Estab.); Microalbumin/Creatinine Ratio 66.4
== END ==
PROVIDERS: PCP Internal Medicine; Visit Provider Internal Medicine
DX: E11.42 Type 2 diabetes mellitus with diabetic polyneuropathy (principal); E78.5 Hyperlipidemia, unspecified; I10 Essential (primary) hypertension; N19 Unspecified kidney failure; M15.0 Primary generalized (osteo)arthritis; Z79.84 Long term (current) use of oral hypoglycemic drugs
CPT/HCPCS: 80053; 80061; 82043; 82570; 83036

== ENCOUNTER → 2022-12-02 08:41 | Outpatient (CLI) | payer MEDICARE, SELFPAY ==
--- NOTE | 2022-12-02 08:45 | XR_ITS ---
FINAL REPORT CLINICAL HISTORY: Rt shoulder fx COMPARISON: 11/04/2022 FINDINGS: RIGHT SHOULDER SERIES Three views of the right shoulder were obtained. There is a comminuted fracture of the humeral head, which is stable. There is mild degenerative change. The overall appearance of the right shoulder is stable. There is no soft tissue abnormality. IMPRESSION: Stable comminuted fracture of the humeral head. Mild degenerative change. Reviewed, Interpreted and Dictated by Franco Valencia III, MD Transcribed by Jason Aranda Authenticated and [facility]
== END ==
PROVIDERS: PCP Internal Medicine; Visit Provider Orthopaedic Surgery
DX: M25.511 Pain in right shoulder (principal)
CPT/HCPCS: 73030

== ENCOUNTER 2022-12-07 15:00 | Outpatient (RCR) | payer MEDICARE, SELFPAY ==
--- NOTE | 2022-10-26 12:26 | HMH.PTOPEV ---
PT Outpatient Evaluation Rehab PT Outpatient Evaluation Start: 10/26/22 11:02 Freq: Status: Active Protocol: Document 10/26/22 11:02 PDESEROUX (Rec: 10/26/22 12:26 PDESEROUX [id number]) E-signed By Jose Armando Alvarado, PT Outpatient Therapy Subjective History Subjective History Pt. is a 82 year old female who presents to [facility] in [place] for the initial evaluation this date(10/26/22) w/ c/o subacute and constant RUE shldr. and elbow P!, edema , and stiffness of traumatic onset after falling onto the RUE shldr. on 09/16/22. Pt. reports falling onto her RUE shldr. in the [employer] parking lot after getting her feet tangled up in some bags. Recent diagnostic imaging positive for a fracture per pt . report. Pt. reports her fall will be 6 weeks from this coming Wednesday(10/28/22). Pt . reports being instructed to be in her sling maybe until December per pt. report. Pt. reports she's been squeezing a stress ball and rotating her forearm that seem to have been helping. Pt. reports symptoms have improved some since DOI. Pt. RTMD 11/04/22. Pt. reports bring in her list of medications and PMH(surgeries) upon return. PMH includes DM- II, Hysterectomy, and 33% kidney function. Chief Complaint Pain,Spasms,Stiff,Swelling, Weakness Symptom Type Ache,Sharp,Dull,Stabbing, Burning,Shooting Symptoms Relieved By Rest/Positioning,Ice,OTC Meds, Prescription Meds Symptoms Aggravated By Supine,Physical Activity, Twisting,Lifting Prior Functional Limitations None Current Functional Limitations Reaching,Lifting,Housework, Dressing,Desk Work/Reading, Driving,Sleeping,Recreation Activity Symptom Description
== END 2023-01-05 16:00 | disposition home or self-care (01) ==
LOC: PT 15:00
PROVIDERS: PCP Internal Medicine; Visit Provider Orthopaedic Surgery
DX: S42.201A Unspecified fracture of upper end of right humerus, initial encounter for closed fracture (principal)
CPT/HCPCS: 97010; 97014; 97110; 97140; 97163; 97164; 97530; G0283

== ENCOUNTER → 2023-01-06 10:48 | Outpatient (CLI) | payer MEDICARE, SELFPAY ==
--- NOTE | 2023-01-06 10:52 | XR_ITS ---
FINAL REPORT CLINICAL HISTORY: rt shoulder pain FINDINGS: Right shoulder Three views were obtained. There is a subacute, comminuted fracture of the humeral head and neck with evidence of callus formation. There is mild AC joint and glenohumeral joint degenerative change. There are several chronic right lateral rib fractures. No soft tissue abnormality is identified. IMPRESSION: Subacute comminuted fracture of the humeral head with evidence of healing. Reviewed, Interpreted and Dictated by Franco Valencia III, MD Transcribed by Geraldine Garcia Authenticated and . [facility]
== END ==
PROVIDERS: PCP Internal Medicine; Visit Provider Orthopaedic Surgery
DX: M25.511 Pain in right shoulder (principal)
CPT/HCPCS: 73030

== ENCOUNTER 2023-01-25 08:46 | Outpatient (CLI) | payer MEDICARE, SELFPAY ==
[2023-01-25 09:03] VITALS: BP 142/67; PULSE 58; RESP 16; TEMP 36.6; O2SAT 97
[2023-01-25 09:33] VITALS: BP 131/65; PULSE 60; RESP 16; TEMP 36.6; O2SAT 97
== END 2023-01-25 09:34 | disposition home or self-care (01) ==
LOC: INF 08:47
PROVIDERS: PCP Internal Medicine; Visit Provider Internal Medicine Nephrology
DX: M81.0 Age-related osteoporosis without current pathological fracture (principal)
CPT/HCPCS: 96401; J0897

== ENCOUNTER → 2023-02-12 11:07 | Outpatient (CLI) | payer MEDICARE, SELFPAY ==
[2023-02-12 13:34] LABS: Anion Gap 9.8 mEq/L (5-15); Blood Urea Nitrogen 23 mg/dl (7-17); Calcium 9.6 mg/dl (8.4-10.2); Carbon Dioxide 33 mmol/L (22.0-30.0); Chloride 103 mmol/L (98-107); Estimated Glomerular Filt Rate 39 ml/min (>60); GFR (African American) 47 ML/MIN (>60); Glucose 101 mg/dl (74-100); Potassium 4.8 mmoL/L (3.5-5.1); Sodium 141 mmol/L (136-145)
== END ==
PROVIDERS: PCP Internal Medicine; Visit Provider Internal Medicine Nephrology
DX: M81.0 Age-related osteoporosis without current pathological fracture (principal)
CPT/HCPCS: 36415; 80048

== ENCOUNTER 2023-06-09 10:57 | Outpatient (CLI) | payer MEDICARE, SELFPAY ==
[2023-06-10 04:28] LABS: Estradiol 8.7 pg/mL (0.0-54.7); FSH 70.8 mIU/mL (25.8-134.8)
[2023-06-18 10:17] LABS: Free Testosterone (Direct) < 0.2 pg/mL (0.0-4.2)
== END 2023-06-09 23:59 ==
LOC: LAB 10:59
PROVIDERS: PCP Internal Medicine; Visit Provider Obstetrics & Gynecology
DX: N95.1 Menopausal and female climacteric states (principal); Z79.890 Hormone replacement therapy
CPT/HCPCS: 36415; 82670; 83001

== ENCOUNTER 2023-07-05 11:05 | Outpatient (CLI) | payer MEDICARE, SELFPAY ==
[2023-07-05 11:44] LABS: Hematocrit 36.4 % (37.0-47.0); Hemoglobin 11.7 g/dL (12.2-16.2); Mean Corpuscular HGB Conc 32.3 g/dL (31.8-35.4); Mean Corpuscular Hemoglobin 30.8 pg (27.0-31.2); Mean Corpuscular Volume 95.3 fl (81-99); Platelet Count 233 K/mm3 (142-424); Red Blood Count 3.81 M/mm3 (4.20-5.40); Red Cell Distribution Width 13.9 % (11.5-17.5); White Blood Count 5.8 K/mm3 (4.8-10.8)
[2023-07-05 11:49] LABS: Creatinine,Urine Random 58 mg/dL (Not Estab.)
[2023-07-05 12:21] LABS: Albumin Level 3.9 g/dl (3.5-5.0); Anion Gap 9.7 mEq/L (5-15); Blood Urea Nitrogen 26 mg/dl (7-17); Calcium 9.2 mg/dl (8.4-10.2); Carbon Dioxide 31 mmol/L (22.0-30.0); Chloride 104 mmol/L (98-107); Estimated Glomerular Filt Rate 43 ml/min (>60); GFR (African American) 52 ML/MIN (>60); Glucose 104 mg/dl (74-100); Phosphorous 3.7 mg/dl (2.5-4.5); Potassium 4.7 mmoL/L (3.5-5.1); Sodium 140 mmol/L (136-145)
[2023-07-05 12:31] LABS: Intact Parathyroid Hormone 205.2 pg/mL (7.5-53.5)
== END 2023-07-05 23:59 ==
LOC: LAB 11:06
PROVIDERS: PCP Internal Medicine; Visit Provider Internal Medicine Nephrology
DX: N18.32 Chronic kidney disease, stage 3b (principal)
CPT/HCPCS: 36415; 80069; 82570; 83970; 84155; 85014; 85018; 85048; 85049

== ENCOUNTER 2023-07-16 13:06 | Outpatient (CLI) | payer MEDICARE, SELFPAY ==
[2023-07-16 14:43] LABS: Alanine Aminotransferase 9 U/L (12-78); Albumin Level 3.9 g/dl (3.5-5.0); Albumin/Globulin Ratio 1.9 (1.1-1.8); Alkaline Phosphatase 92 U/L (38-126); Anion Gap 9.3 mEq/L (5-15); Aspartate Amino Transferase 21 U/L (14-36); Bilirubin,Total 0.6 mg/dl (0.2-1.3); Blood Urea Nitrogen 31 mg/dl (7-17); Calcium 9.3 mg/dl (8.4-10.2); Carbon Dioxide 32 mmol/L (22.0-30.0); Chloride 103 mmol/L (98-107); Chol/HDL Ratio 3.3 (1-3.5); Cholesterol 154 mg/dl (140-200); Estimated Glomerular Filt Rate 39 ml/min (>60); GFR (African American) 47 ML/MIN (>60); Globulin 2.1 g/dL (1.3-3.2); Glucose 89 mg/dl (74-100); HDL Cholesterol 47 mg/dl (40-60); Potassium 5.3 mmoL/L (3.5-5.1); Sodium 139 mmol/L (136-145); Triglycerides 138 mg/dl (30-150); VLDL Cholesterol 28 mg/dL (0-40)
[2023-07-16 14:54] LABS: Direct LDL Cholesterol 70.71 mg/dL (100-129)
[2023-07-16 15:33] LABS: Hemoglobin A1C 5.9 % (4.0-6.0)
== END 2023-07-16 23:59 ==
LOC: LAB.DROPOF 13:07
PROVIDERS: PCP Internal Medicine; Visit Provider Internal Medicine
DX: E11.42 Type 2 diabetes mellitus with diabetic polyneuropathy (principal); I10 Essential (primary) hypertension; E78.5 Hyperlipidemia, unspecified; M15.0 Primary generalized (osteo)arthritis; Z79.84 Long term (current) use of oral hypoglycemic drugs
CPT/HCPCS: 80053; 80061; 83036

== ENCOUNTER 2023-08-24 14:15 | Outpatient (CLI) | payer MEDICARE, SELFPAY ==
--- NOTE | 2023-08-24 14:23 | XR_ITS ---
FINAL REPORT CLINICAL HISTORY: FALL ON RT SHOULDER 08/17/23, ELEVATED PAIN COMPARISON: 01/06/2023 FINDINGS: Right shoulder Three views were obtained. There is no acute fracture or dislocation. There is healed fracture deformity of the surgical and anatomic neck of the humerus. There are degenerative changes of the glenohumeral joint. There is a 1.4 cm density in the joint space, probably related to intra-articular loose body. This was not clearly seen on the prior. IMPRESSION: Healed fracture there are deformity as above. Intra-articular loose body. Reviewed, Interpreted and Dictated by Jair Schmitz MD Transcribed by Geraldine Garcia Authenticated and [facility]
== END 2023-08-24 23:59 | disposition home or self-care (01) ==
LOC: RAD 14:16
PROVIDERS: PCP Internal Medicine; Visit Provider Internal Medicine
DX: M25.511 Pain in right shoulder (principal)
CPT/HCPCS: 73030

== ENCOUNTER 2023-10-18 15:04 | Outpatient (CLI) | payer MEDICARE, SELFPAY ==
[2023-10-18 16:12] LABS: Hemoglobin A1C 5.9 % (4.0-6.0)
== END 2023-10-18 23:59 | disposition home or self-care (01) ==
LOC: LAB.DROPOF 15:05
PROVIDERS: PCP Internal Medicine; Visit Provider Internal Medicine
DX: E11.49 Type 2 diabetes mellitus with other diabetic neurological complication (principal); N39.0 Urinary tract infection, site not specified; B96.20 Unspecified Escherichia coli [E. coli] as the cause of diseases classified elsewhere; Z79.84 Long term (current) use of oral hypoglycemic drugs
CPT/HCPCS: 83036; 87086; 87088; 87186

== ENCOUNTER 2023-10-28 14:10 | Outpatient (CLI) | payer MEDICARE, SELFPAY | END 2023-10-28 23:59 | disposition home or self-care (01) | LOC: LAB 14:11 | PROVIDERS: PCP Internal Medicine; Visit Provider Physician Assistant Medical | DX: M81.0 Age-related osteoporosis without current pathological fracture (principal) | CPT/HCPCS: 36415; 84080 ==

== ENCOUNTER 2023-11-01 15:34 | Outpatient (CLI) | payer MEDICARE, SELFPAY ==
--- NOTE | 2023-11-01 15:47 | XR_ITS ---
FINAL REPORT CLINICAL HISTORY: Right hip pain, status post fall 3 weeks ago COMPARISON: None FINDINGS: SINGLE VIEW PELVIS: A single view of the pelvis was obtained. There is no acute fracture or dislocation. Vizualized joint spaces are normally aligned. Mild degenerative change is present in the hips. Postoperative changes are noted in the lower pelvis. Soft tissues are unremarkable. IMPRESSION: No acute bony abnormality. Mild degenerative change present in the hips bilaterally. Reviewed, Interpreted and Dictated by Franco Valencia III, MD Transcribed by Monserrat Gutiérrez Authenticated and . [facility]
--- NOTE | 2023-11-01 15:47 | XR_ITS ---
FINAL REPORT CLINICAL HISTORY: Lumbago with right sciatica COMPARISON: None FINDINGS: AP and lateral views of the lumbar spine were obtained. There is no prior exam for comparison. Severe degenerative changes present in the lumbar spine, with 44 degrees of levoscoliosis. Mild fusions have been performed in the past in the lumbar and lower thoracic spine. Vertebral body height is preserved. Vacuum phenomenon is present at multiple levels. Vascular calcifications are noted. IMPRESSION: Severe degenerative change of the lumbar spine is present, with marked levoscoliosis and prior fusions. Reviewed, Interpreted and Dictated by Franco Valencia III, MD Transcribed by Monserrat Gutiérrez Authenticated and [facility]
== END 2023-11-01 23:59 | disposition home or self-care (01) ==
LOC: RAD 15:38
PROVIDERS: PCP Internal Medicine; Visit Provider Internal Medicine
DX: M54.41 Lumbago with sciatica, right side (principal); M25.551 Pain in right hip
CPT/HCPCS: 72100; 72170

== ENCOUNTER 2023-11-25 14:39 | Outpatient (CLI) | payer MEDICARE, SELFPAY ==
[2023-11-25 16:06] LABS: Albumin Level 3.5 g/dl (3.5-5.0); Anion Gap 8.7 mEq/L (5-15); Blood Urea Nitrogen 41 mg/dl (7-17); Carbon Dioxide 25 mmol/L (22.0-30.0); Chloride 108 mmol/L (98-107); Estimated Glomerular Filt Rate 39 ml/min (>60); GFR (African American) 47 ML/MIN (>60); Glucose 124 mg/dl (74-100); Phosphorous 4.1 mg/dl (2.5-4.5); Potassium 4.7 mmoL/L (3.5-5.1); Sodium 137 mmol/L (136-145)
[2023-12-03 02:47] LABS: C-Telopeptide Serum 700 pg/mL (.)
== END 2023-11-25 23:59 | disposition home or self-care (01) ==
LOC: LAB 14:41
PROVIDERS: PCP Internal Medicine; Visit Provider Physician Assistant Medical
DX: M81.0 Age-related osteoporosis without current pathological fracture (principal)
CPT/HCPCS: 36415; 80069; 82523

== ENCOUNTER 2023-12-27 09:55 | Outpatient (CLI) | payer MEDICARE, SELFPAY ==
[2023-12-27 10:15] VITALS: BP 110/59; PULSE 62; RESP 18; O2SAT 94
[2023-12-27] MEDS: DENOSUMAB 60 MG/ML SYRINGE SQ (10:15)
== END 2023-12-27 10:20 | disposition home or self-care (01) ==
LOC: INF 09:56
PROVIDERS: PCP Internal Medicine; Visit Provider Internal Medicine Nephrology
DX: M81.0 Age-related osteoporosis without current pathological fracture (principal)
CPT/HCPCS: 96372; J0897

== ENCOUNTER 2024-01-04 15:37 | Outpatient (CLI) | payer MEDICARE, SELFPAY ==
[2024-01-04 16:52] LABS: Albumin Level 3.6 g/dl (3.5-5.0); Anion Gap 8.8 mEq/L (5-15); Blood Urea Nitrogen 30 mg/dl (7-17); Carbon Dioxide 26 mmol/L (22.0-30.0); Chloride 108 mmol/L (98-107); Estimated Glomerular Filt Rate 31 ml/min (>60); GFR (African American) 37 ML/MIN (>60); Glucose 141 mg/dl (74-100); Phosphorous 3.2 mg/dl (2.5-4.5); Potassium 4.8 mmoL/L (3.5-5.1); Sodium 138 mmol/L (136-145)
[2024-01-11 16:23] LABS: Tandem-R Ostase 16.2 ug/L (.)
[2024-01-14 22:05] LABS: C-Telopeptide Serum 236 pg/mL (.)
[2024-01-20 16:02] LABS: Serial Monitoring PDF SCANNED IMAGE
== END 2024-01-04 23:59 | disposition home or self-care (01) ==
LOC: LAB 15:40
PROVIDERS: PCP Internal Medicine; Visit Provider Internal Medicine Nephrology
DX: N18.32 Chronic kidney disease, stage 3b (principal); M81.0 Age-related osteoporosis without current pathological fracture
CPT/HCPCS: 36415; 80069; 82306; 82523; 84080

== ENCOUNTER 2024-01-20 11:13 | Outpatient (CLI) | payer MEDICARE, SELFPAY ==
[2024-01-20 10:22] LABS: Basophils % 0.5 % (0.1-2.0); Eosinophils # 0.2 K/mm3 (0.0-0.4); Eosinophils % 4.3 % (0.1-12.0); Hematocrit 36.6 % (37.0-47.0); Hemoglobin 11.6 g/dL (12.2-16.2); Lymphocytes # 1.3 K/mm3 (0.7-4.5); Lymphocytes % 23.4 % (10-50); Mean Corpuscular HGB Conc 31.7 g/dL (31.8-35.4); Mean Corpuscular Hemoglobin 31.2 pg (27.0-31.2); Mean Corpuscular Volume 98.4 fl (81-99); Mean Platelet Volume 8.6 fl (7.4-10.4); Monocytes # 0.3 K/mm3 (0.1-1.0); Neutrophils # 3.5 K/mm3 (1.8-7.8); Neutrophils % 65.9 % (37.0-80.0); Platelet Count 220 K/mm3 (142-424); Red Blood Count 3.72 M/mm3 (4.20-5.40); Red Cell Distribution Width 14.3 % (11.5-17.5); White Blood Count 5.4 K/mm3 (4.8-10.8)
[2024-01-20 11:04] LABS: Chloride 107 mmol/L (98-107); Sodium 139 mmol/L (136-145)
[2024-01-20 11:05] LABS: Potassium 4.5 mmoL/L (3.5-5.1)
[2024-01-20 11:07] LABS: Alanine Aminotransferase 12 U/L (12-78); Albumin/Globulin Ratio 1.9 (1.1-1.8); Alkaline Phosphatase 87 U/L (38-126); Anion Gap 7.5 mEq/L (5-15); Aspartate Amino Transferase 19 U/L (14-36); Bilirubin,Total 0.6 mg/dl (0.2-1.3); Blood Urea Nitrogen 39 mg/dl (7-17); Calcium 9.4 mg/dl (8.4-10.2); Carbon Dioxide 29 mmol/L (22.0-30.0); Cholesterol 142 mg/dl (140-200); Estimated Glomerular Filt Rate 36 ml/min (>60); GFR (African American) 43 ML/MIN (>60); Globulin 2.1 g/dL (1.3-3.2); Glucose 105 mg/dl (74-100); Total Protein,Serum 6.1 g/dl (6.3-8.2); Triglycerides 141 mg/dl (30-150); VLDL Cholesterol 28 mg/dL (0-40)
[2024-01-20 11:08] LABS: Chol/HDL Ratio 2.7 (1-3.5); HDL Cholesterol 52 mg/dl (40-60)
[2024-01-20 11:19] LABS: Direct LDL Cholesterol 57.96 mg/dL (100-129)
[2024-01-20 12:10] LABS: Hemoglobin A1C 5.8 % (4.0-6.0)
== END 2024-01-20 23:59 | disposition home or self-care (01) ==
LOC: LAB.DROPOF 11:15
PROVIDERS: PCP Internal Medicine; Visit Provider Internal Medicine
DX: E78.5 Hyperlipidemia, unspecified (principal); I10 Essential (primary) hypertension; N18.32 Chronic kidney disease, stage 3b; E11.42 Type 2 diabetes mellitus with diabetic polyneuropathy; N39.0 Urinary tract infection, site not specified; M54.40 Lumbago with sciatica, unspecified side; R29.6 Repeated falls
CPT/HCPCS: 80053; 80061; 83036; 85025

== ENCOUNTER 2024-03-17 09:52 | Outpatient (CLI) | payer MEDICARE, SELFPAY ==
[2024-03-17] MEDS: ALBUTEROL 0.083% 2.5 MG/3 ML NEB IH (10:43)
== END 2024-03-17 23:59 | disposition home or self-care (01) ==
LOC: RT 09:53
PROVIDERS: PCP Internal Medicine; Visit Provider Internal Medicine Pulmonary Disease
DX: R06.09 Other forms of dyspnea (principal)
CPT/HCPCS: 94060; 94618; 94726; 94729; J7613

== ENCOUNTER 2024-06-16 20:16 | Emergency (ER) | payer MEDICARE, SELFPAY ==
[2024-06-16 20:22] VITALS: BP 134/52; PULSE 65; RESP 18; TEMP 36.1; O2SAT 94; BMI 30.9
[2024-06-16 21:18] VITALS: BP 136/116; PULSE 61; RESP 18; O2SAT 95
--- NOTE | 2024-06-16 21:28 | ED_ITS ---
Discharge Plan Disposition Patient Disposition: Home, Self-Care Condition: Good Prescriptions Prescriptions: No Action melatonin 10 mg tablet 10 mg PO DAILY cholecalciferol (vitamin D3) 50 mcg (2,000 unit) capsule 50 mcg PO DAILY hydrochlorothiazide 12.5 mg tablet 12.5 mg PO DAILY methenamine hippurate 1 gram tablet 1 g PO BID budesonide 0.5 mg/2 mL suspension for nebulization 0.5 mg inhalation BID Qty: 360 2RF formoterol fumarate [Perforomist] 20 mcg/2 mL solution for nebulization 2 ml inhalation BID 90 Days Qty: 180 3RF furosemide 40 mg tablet 40 mg PO DAILY PRN (Reason: edema) Qty: 30 1RF losartan 100 mg tablet 100 mg PO DAILY Qty: 90 1RF lovastatin 40 mg tablet 40 mg PO HS Qty: 90 1RF citalopram 20 mg tablet 20 mg PO DAILY Qty: 90 1RF atenolol 25 mg tablet 25 mg PO DAILY Qty: 90 1RF metformin 500 mg tablet 500 mg PO BID Qty: 180 1RF gabapentin 300 mg capsule 300 mg PO Q8H Qty: 270 0RF hydrocodone-acetaminophen 7.5-325 mg tablet 1 tab PO Q8H PRN (Reason: pain) Qty: 60 0RF Referrals Follow up/Referrals: Delvis Colmenares MD [Primary Care Provider] - See instructions Activity Restrictions/Add. Instructions Additional Instructions/Restrictions: Follow-up with primary care physician in 10 to 14 days for reevaluation of wound and removal of stitches. Keep wound clean with warm soapy water once a day. Change bandages daily. keep bandaged until wound scabs over. Return to the emergency department for brisk bleeding or purulent drainage. Clinical Impressions Clinical Impression: Laceration Instructions Patient Instructions: DI for Laceration Repair Print Language Print Language: Liberian Discharge ED Provider: Tamia Pacheco General Adult HPI General Chief complaint: Wound/Laceration Stated complaint: AO 06/16/24 1900 laceration left leg Time Seen by Provider: 06/16/24 21:28 Mode of Arrival: Wheelchair Source of Information: Patient Limitations: No Limitations Description of Symptoms (Recalled from ER Triage Doc. by RN): Patient stated she was stepping up on a restoration van when she fell into the steps suffering a laceration to her left lower leg. Patient presents to triage with bleeding controlled. Kerlix noted around the leg. Assessment delayed until provider evaluation to prevent further bleeding. Patient denies anticoagulation usage. History of Present Illness HPI narrative: Patient is an 84-year-old with no significant past medical history presents to the emergency department after hitting her thorpe on the restoration bus steps. Patient was climbing the stairs and hit her left thorpe. Patient did not fall and did not lose consciousness and was ambulatory after the incident. Denies blood thinner use. Related Data Home Medications ?Medication ?Instructions ?Recorded ?Confirmed cholecalciferol (vitamin D3) 50 50 mcg PO DAILY Supplement 08/23/20 04/20/24 mcg (2,000 unit) capsule melatonin 10 mg tablet 10 mg PO DAILY sleep 08/23/20 04/20/24 methenamine hippurate 1 gram tablet 1 g PO BID 03/17/23 04/20/24 hydrochlorothiazide 12.5 mg tablet 12.5 mg PO DAILY 04/20/24 04/20/24 Previous Rx's ?Medication ?Instructions ?Recorded furosemide 40 mg tablet 40 mg PO DAILY PRN edema #30 tabs 10/18/23 budesonide 0.5 mg/2 mL suspension 0.5 mg (2 mL) inhalation BID #360 03/17/24 for nebulization mL formoterol fumarate 20 mcg/2 mL 2 ml inhalation BID 90 days #180 mL 03/17/24 solution for nebulization (Perforomist) atenolol 25 mg tablet 25 mg PO DAILY High Blood Pressure 03/29/24 #90 tabs citalopram 20 mg tablet 20 mg PO DAILY Depression #90 tabs 03/29/24 losartan 100 mg tablet 100 mg PO DAILY High Blood 03/29/24 Pressure #90 tabs lovastatin 40 mg tablet 40 mg PO HS #90 tabs 03/29/24 metformin 500 mg tablet 500 mg PO BID Diabetes #180 tabs 04/03/24 gabapentin 300 mg capsule 300 mg PO Q8H neuropathy #270 caps 04/04/24 hydrocodone 7.5 mg-acetaminophen 1 tab PO Q8H PRN pain #60 tabs 05/17/24 325 mg tablet Allergies Allergy/AdvReac Type Severity Reaction Status Date / Time atorvastatin Allergy Unknown I-RASH Verified 04/20/24 08:41 naproxen Allergy Unknown I-RASH Verified 04/20/24 08:41 Sulfa (Sulfonamide Allergy Unknown I-RASH Verified 04/20/24 08:41 Antibiotics) ROSEY Allergy Unknown Rash Uncoded 03/17/24 11:41 [facility] Disclaimer: The information contained in this section may have been updated after the patient was seen, as this information can be updated by other users. Medical History Cough variant asthma Asthma GERD (gastroesophageal reflux disease) Chronic cough Allergic rhinitis Skin cancer, basal cell Surgical History History of cataract surgery History of cholecystectomy History of repair of rectocele History of bladder surgery History of hysterectomy Family History Other Diabetes Hypertension Social History Smoking Status: Never smoker alcohol intake: never substance use type: denies use current occupational status: retired Travel in the last 8 weeks: None Have you lived/traveled outside US in past 30 days?: No Contact w/someone who lives/traveled outside US past 30 days?: No Exposure to someone with infectious disease in past 14 days?: No Do you have a fever (greater than 100.4 F or 38 C)?: No Have you tested positive for COVID-19: No Exposed to someone with COVID-19 in past 14 days?: No Do you have a sore throat?: No Do you have a cough?: No Do you have any weakness?: No Do you have any diarrhea?: No Are you experiencing any unusual bleeding?: No Do you have any muscle aches/pain?: No Do you have any abdominal pain?: No Are you experiencing loss of taste or smell?: No Other Medical History Have you received the Flu Vaccine for this season: Yes Have you received the Pneumonia Vaccine: Yes ROS Obtained: Yes All systems reviewed & no additional complaints except as documented Physical Exam General General appearance: alert and in no apparent distress Head Head exam: atraumatic and normocephalic Respiratory Respiratory exam: Absent respiratory distress Cardiovascular Cardiovascular exam: Present regular rate and normal rhythm Abdominal Exam Abdominal exam: Present soft; Absent tenderness Extremities Exam Extremities exam: Present tenderness (Left thorpe, 3 cm hemostatic laceration anterior left thorpe) Neurological Exam Neurological exam: Present alert and oriented X3 Medical Decision Making Medical Records Screening: Per USPSTF and CDC recommendations, given the prevalence of disease in our region, it is our hospital?s policy to screen for HIV and viral Hepatitis for all patients aged 18 and over and those with ongoing risk factors. Cr Inquiry Pt receiving controlled substance: No Vital Signs: 06/16/24 20:22 06/16/24 21:18 Temperature 97.0 F L Temperature Source Temporal Artery Scan Pulse Rate 61 Pulse Rate [Radial] 65 Respiratory Rate 18 18 Blood Pressure 136/116 H Blood Pressure [R Arm] 134/52 L Blood Pressure Mean 121 Blood Pressure Mean [R Arm] 79 Blood Pressure Source [R Arm] Automatic Cuff Blood Pressure Position [R Arm] Sitting 02 Sat by Pulse Oximetry 94 L 95 Oxygen Delivery Method Room Air Orders (Tests/Meds): ED MEDICATIONS Discontinued Medications Generic Name Dose Route Start Last Admin Trade Name Freq PRN Reason Stop Dose Admin Lidocaine/Epinephrine 10 ml 06/16/24 21:32 06/16/24 21:44 Lidocaine 1% W/Epi 1:100,000 20ml Vial SQ 06/16/24 21:33 1 ml ONCE ONE Administration Tetanus/Reduced Diphtheria/Acell Pertussis 0.5 ml 06/16/24 21:32 06/16/24 21:43 Tet/Diphth/Pert-Adult 0.5ml Syringe IM 06/16/24 21:33 0.5 ml .ONCE ONE Administration ORDERS Category Date Time Status XR ankle LT min 3V Stat Exams 06/16/24 21:32 Completed XR tibia fibula LT 2V Stat Exams 06/16/24 21:32 Completed Medical Decision Narrative: In summary, this 84-year-old female presents to the emergency department today with laceration. On initial evaluation patient is hemodynamically stable saturating appropriately on room air afebrile no acute distress. Differential diagnosis includes but is not limited to laceration or fracture. Based on these concerns, I ordered x-rays of the left thorpe and ankle. Patient received updated Tdap. XR personally interpreted demonstrates no acute fracture Laceration performed per procedure note On reevaluation patient ambulatory wound hemostatic amenable to discharge at this time Procedures Laceration Laceration 1: Site: lower extremity Side (If applicable): left Size (cm): 5 Description: linear Depth: simple, single layer Local Anesthetic: lidocaine 1% and with epi Amount of anesthesia used (mL): 5 Pre-repair: irrigated extensively and deep structures intact Skin layer closed with: nylon Size (cm): 3-0 Number of sutures: 5 Technique: horizontal mattress Critical Care Critical Care Time Critical Care Time: No
[2024-06-16 21:30] VITALS: BP 146/67; PULSE 65; O2SAT 96
--- NOTE | 2024-06-16 21:32 | XR_ITS ---
PROCEDURE INFORMATION: Exam: XR Left Tibia and Fibula Exam date and time: 06/16/2024 9:36 PM Age: 84 years old Clinical indication: Injury or trauma; Fall; Laceration; Lower leg; Left; Foreign body involvement not specified TECHNIQUE: Imaging protocol: Radiologic exam of the left tibia and fibula. Views: 2 views. COMPARISON: CR XR ANKLE LT MIN 3V 06/16/2024 9:36 PM FINDINGS: Bones/joints: Normal. Soft tissues: Normal. IMPRESSION: No acute findings.
--- NOTE | 2024-06-16 21:32 | XR_ITS ---
PROCEDURE INFORMATION: Exam: XR Left Ankle Exam date and time: 06/16/2024 9:36 PM Age: 84 years old Clinical indication: Pain; Ankle; Left; Additional info: Fall TECHNIQUE: Imaging protocol: Radiologic exam of the left ankle. Views: 3 or more views. COMPARISON: CR XR ANKLE LT MIN 3V 06/16/2024 9:36 PM FINDINGS: Bones/joints: Normal. Soft tissues: Normal. IMPRESSION: No acute findings.
[2024-06-16] MEDS: TET/DIPHTH/PERT-ADULT 0.5ML SYRINGE 0.5 ML IM (21:43)
[2024-06-16] MEDS: LIDOCAINE 1% W/EPI 1:100,000 20ML VIAL 10 ML SQ (21:44)
[2024-06-16 22:00] VITALS: BP 134/62; PULSE 60; O2SAT 94
[2024-06-16 22:37] VITALS: BP 128/61; PULSE 62; RESP 18; TEMP 36.7; O2SAT 96
== END 2024-06-16 22:38 | disposition home or self-care (01) ==
PROVIDERS: Emergency Provider Student in an Organized Health Care Education/Training Program; PCP Internal Medicine
DX: S81.812A Laceration without foreign body, left lower leg, initial encounter (principal); W22.8XXA Striking against or struck by other objects, initial encounter
CPT/HCPCS: 12002; 73590; 73610; 90471; 90715; 99284

== ENCOUNTER 2024-07-12 16:42 | Outpatient (CLI) | payer MEDICARE, SELFPAY | END 2024-07-12 23:59 | disposition home or self-care (01) | LOC: LAB.DROPOF 16:42 | PROVIDERS: PCP Internal Medicine; Visit Provider Internal Medicine | DX: L08.9 Local infection of the skin and subcutaneous tissue, unspecified (principal); B96.5 Pseudomonas (aeruginosa) (mallei) (pseudomallei) as the cause of diseases classified elsewhere | CPT/HCPCS: 87070; 87077; 87186; 87205 ==

== ENCOUNTER 2024-07-20 09:20 | Outpatient (CLI) | payer MEDICARE, SELFPAY ==
[2024-07-20 17:31] LABS: Basophils % 0.3 % (0.1-2.0); Eosinophils # 0.2 K/mm3 (0.0-0.4); Eosinophils % 3.4 % (0.1-12.0); Hematocrit 34.9 % (37.0-47.0); Lymphocytes # 1.1 K/mm3 (0.7-4.5); Lymphocytes % 18.4 % (10-50); Mean Corpuscular HGB Conc 31.5 g/dL (31.8-35.4); Mean Corpuscular Hemoglobin 30.6 pg (27.0-31.2); Mean Corpuscular Volume 97.2 fl (81-99); Mean Platelet Volume 9.6 fl (7.4-10.4); Monocytes # 0.5 K/mm3 (0.1-1.0); Monocytes % 8.1 % (1.7-9.3); Neutrophils # 4.3 K/mm3 (1.8-7.8); Neutrophils % 69.3 % (37.0-80.0); Platelet Count 213 K/mm3 (142-424); Red Blood Count 3.59 M/mm3 (4.20-5.40); Red Cell Distribution Width 13.4 % (11.5-17.5); White Blood Count 6.2 K/mm3 (4.8-10.8)
[2024-07-20 17:36] LABS: Creatinine,Urine Random 115 mg/dL (Not Estab.)
[2024-07-20 17:44] LABS: Microalbumin < 6.000 mg/L (0-16.7)
[2024-07-20 18:34] LABS: Alanine Aminotransferase 15 U/L (12-78); Albumin/Globulin Ratio 2.2 (1.1-1.8); Alkaline Phosphatase 61 U/L (38-126); Anion Gap 10.7 mEq/L (5-15); Aspartate Amino Transferase 22 U/L (14-36); Bilirubin,Total 0.4 mg/dl (0.2-1.3); Blood Urea Nitrogen 42 mg/dl (7-17); Calcium 8.8 mg/dl (8.4-10.2); Carbon Dioxide 28 mmol/L (22.0-30.0); Chloride 105 mmol/L (98-107); Chol/HDL Ratio 2.4 (1-3.5); Cholesterol 147 mg/dl (140-200); Estimated Glomerular Filt Rate 29 ml/min (>60); GFR (African American) 35 ML/MIN (>60); Globulin 1.8 g/dL (1.3-3.2); Glucose 86 mg/dl (74-100); HDL Cholesterol 62 mg/dl (40-60); Potassium 4.7 mmoL/L (3.5-5.1); Sodium 139 mmol/L (136-145); Total Protein,Serum 5.8 g/dl (6.3-8.2); Triglycerides 108 mg/dl (30-150); VLDL Cholesterol 22 mg/dL (0-40)
[2024-07-20 18:45] LABS: Direct LDL Cholesterol 59.45 mg/dL (100-129)
== END 2024-07-20 23:59 | disposition home or self-care (01) ==
LOC: LAB.DROPOF 07-21 11:21
PROVIDERS: PCP Internal Medicine; Visit Provider Internal Medicine
DX: E78.5 Hyperlipidemia, unspecified (principal); I12.9 Hypertensive chronic kidney disease with stage 1 through stage 4 chronic kidney disease, or unspecified chronic kidney disease; N18.32 Chronic kidney disease, stage 3b; E11.42 Type 2 diabetes mellitus with diabetic polyneuropathy; Z79.84 Long term (current) use of oral hypoglycemic drugs
CPT/HCPCS: 80053; 80061; 82043; 82570; 83036; 85025

== ENCOUNTER 2024-08-02 11:29 | Emergency (ER) | payer MEDICARE, SELFPAY ==
[2024-08-02 11:45] VITALS: BP 165/86; PULSE 94; RESP 14; TEMP 36.7; O2SAT 98; BMI 30.9
[2024-08-02 12:01] VITALS: BP 128/63; PULSE 78; O2SAT 100
[2024-08-02 12:30] VITALS: BP 126/56; PULSE 60; O2SAT 100
--- NOTE | 2024-08-02 12:37 | HMH.EDGENADL ---
Discharge Plan Disposition Patient Disposition: Home, Self-Care Chief Complaint: PAIN Prescriptions Prescriptions: No Action melatonin 10 mg tablet 10 mg PO DAILY cholecalciferol (vitamin D3) 50 mcg (2,000 unit) capsule 50 mcg PO DAILY hydrochlorothiazide 12.5 mg tablet 12.5 mg PO DAILY furosemide 40 mg tablet 40 mg PO .Each morning PRN (Reason: edema) Qty: 30 2RF hydrocodone-acetaminophen 7.5-325 mg tablet 1 tab PO Q8H PRN (Reason: pain) Qty: 60 0RF methenamine hippurate 1 gram tablet 1 g PO BID budesonide 0.5 mg/2 mL suspension for nebulization 0.5 mg inhalation BID Qty: 360 2RF formoterol fumarate [Perforomist] 20 mcg/2 mL solution for nebulization 2 ml inhalation BID 90 Days Qty: 180 3RF losartan 100 mg tablet 100 mg PO DAILY Qty: 90 1RF lovastatin 40 mg tablet 40 mg PO HS Qty: 90 1RF citalopram 20 mg tablet 20 mg PO DAILY Qty: 90 1RF atenolol 25 mg tablet 25 mg PO DAILY Qty: 90 1RF metformin 500 mg tablet 500 mg PO BID Qty: 180 1RF gabapentin 300 mg capsule 300 mg PO Q8H Qty: 270 0RF Referrals Follow up/Referrals: Delvis Colmenares MD [Primary Care Provider] - See instructions Activity Restrictions/Add. Instructions Additional Instructions/Restrictions: Start wearing compression stockings in your lower extremities every day. Put them on your nightstand and before getting out of bed, put them on your legs. Be sure to get compression stockings that go all the way from your toes up past your knee in order to prevent significant swelling in the foot. Call your family doctor to establish care for this visit to the emergency department and schedule follow-up within 48 hours to ensure improvement. If you have any worsening of your condition or any other concerning signs or symptoms, return to the emergency department or your primary care doctor for further evaluation. Clinical Impressions Clinical Impression: Pain and swelling of right lower leg Print Language Print Language: Estonian Discharge ED Provider: Sarmad Rubin General Adult [facility] General Chief complaint: PAIN Stated complaint: R knee swelling w/pain Time Seen by Provider: 08/02/24 11:44 Mode of Arrival: Ambulatory Source of Information: Patient Description of Symptoms (Recalled from ER Triage Doc. by RN): patient states for two weeks she has had right knee pain that is in the back of her knee that radiates to her butocks. 8/10 pain. History of Present Illness HPI narrative: Please note that above description of symptoms, in this electronic medical record under categorization of recalled from ER triage doctor by RN are reflective of an initial nursing assessment, however, is not reflective of my full history and physical exam that was personally taken and clarified. Consequentially, this preceding description of symptoms, which may include the patient's categorized chief complaint in the EMR, do not reflect my personal clinical impression, and the ultimate description of history of present illness and patient stated complaints should be deferred to this section of the note. Unless stated otherwise or congruent with this section of the note, additional signs, symptoms, or incongruence should be interpreted as inaccurate with my clinical impression. Related Data Home Medications ?Medication ?Instructions ?Recorded ?Confirmed cholecalciferol (vitamin D3) 50 50 mcg PO DAILY Supplement 08/23/20 08/01/24 mcg (2,000 unit) capsule melatonin 10 mg tablet 10 mg PO DAILY sleep 08/23/20 08/01/24 methenamine hippurate 1 gram tablet 1 g PO BID 03/17/23 08/01/24 hydrochlorothiazide 12.5 mg tablet 12.5 mg PO DAILY 04/20/24 08/01/24 Previous Rx's ?Medication ?Instructions ?Recorded budesonide 0.5 mg/2 mL suspension 0.5 mg (2 mL) inhalation BID #360 03/17/24 for nebulization mL formoterol fumarate 20 mcg/2 mL 2 ml inhalation BID 90 days #180 mL 03/17/24 solution for nebulization (Perforomist) atenolol 25 mg tablet 25 mg PO DAILY High Blood Pressure 03/29/24 #90 tabs citalopram 20 mg tablet 20 mg PO DAILY Depression #90 tabs 03/29/24 losartan 100 mg tablet 100 mg PO DAILY High Blood 03/29/24 Pressure #90 tabs lovastatin 40 mg tablet 40 mg PO HS #90 tabs 03/29/24 metformin 500 mg tablet 500 mg PO BID Diabetes #180 tabs 07/24/24 gabapentin 300 mg capsule 300 mg PO Q8H neuropathy #270 caps 07/31/24 furosemide 40 mg tablet 40 mg PO .Each morning PRN edema 08/01/24 #30 tabs hydrocodone 7.5 mg-acetaminophen 1 tab PO Q8H PRN pain #60 tabs 08/01/24 325 mg tablet Allergies Allergy/AdvReac Type Severity Reaction Status Date / Time atorvastatin Allergy Unknown I-RASH Verified 08/02/24 12:01 naproxen Allergy Unknown I-RASH Verified 08/02/24 12:01 Sulfa (Sulfonamide Allergy Unknown I-RASH Verified 08/02/24 12:01 Antibiotics) ROSEY Allergy Unknown Rash Uncoded 07/03/24 14:46 [facility] Disclaimer: The information contained in this section may have been updated after the patient was seen, as this information can be updated by other users. Medical History Cough variant asthma Asthma GERD (gastroesophageal reflux disease) Chronic cough Allergic rhinitis Skin cancer, basal cell Surgical History History of cataract surgery History of cholecystectomy History of repair of rectocele History of bladder surgery History of hysterectomy Family History Other Diabetes Hypertension Social History Smoking Status: Never smoker alcohol intake: never substance use type: denies use current occupational status: retired Travel in the last 8 weeks: None Have you lived/traveled outside US in past 30 days?: No Contact w/someone who lives/traveled outside US past 30 days?: No Exposure to someone with infectious disease in past 14 days?: No Do you have a fever (greater than 100.4 F or 38 C)?: No Have you tested positive for COVID-19: No Exposed to someone with COVID-19 in past 14 days?: No Do you have a sore throat?: No Do you have a cough?: No Do you have any weakness?: No Do you have any diarrhea?: No Are you experiencing any unusual bleeding?: No Do you have any muscle aches/pain?: No Do you have any abdominal pain?: No Are you experiencing loss of taste or smell?: No Other Medical History Have you received the Flu Vaccine for this season: Yes Have you received the Pneumonia Vaccine: Yes ROS Obtained: Yes All systems reviewed & no additional complaints except as documented Physical Exam General General appearance: alert and in no apparent distress Head Head exam: atraumatic and normocephalic Eye Eye exam: Present normal appearance, PERRL and EOMI Neck Neck exam: Present normal inspection, full ROM and trachea midline Respiratory Respiratory exam: Absent respiratory distress, wheezes, stridor, accessory muscle use or prolonged expiratory phase Cardiovascular Cardiovascular exam: Present other (Pulses equal symmetric in upper and lower extremities) Abdominal Exam Abdominal exam: Present soft; Absent distention, tenderness or pulsatile mass Extremities Exam Extremities exam: Present edema and joint swelling Neurological Exam Neurological exam: Present alert, oriented X3 and CN II-XII intact; Absent motor sensory deficit Skin Skin exam: Present warm and dry; Absent diaphoresis or erythema Medical Decision Making Medical Records Medical records reviewed: Yes I reviewed the patient's medical records. Screening: Per USPSTF and CDC recommendations, given the prevalence of disease in our region, it is our hospital?s policy to screen for HIV and viral Hepatitis for all patients aged 18 and over and those with ongoing risk factors. Cr Inquiry Pt receiving controlled substance: No Cr was queried for this patient: No Vital Signs: 08/02/24 11:45 08/02/24 12:01 08/02/24 12:30 Temperature 98.1 F Temperature Source Oral Pulse Rate 78 60 Pulse Rate [Right] 94 H Respiratory Rate 14 Blood Pressure 128/63 126/56 L Blood Pressure [Right Arm] 165/86 H Blood Pressure Mean 95 79 Blood Pressure Mean [Right Arm] 112 Blood Pressure Source [Right Arm] Automatic Cuff Blood Pressure Position [Right Arm] Sitting 02 Sat by Pulse Oximetry 98 100 100 Oxygen Delivery Method Room Air Room Air Room Air Lab Data Lab Results 08/02/24 13:04: WBC 6.2, RBC 3.80 L, Hgb 11.6 L, Hct 36.2 L, MCV 95.3, MCH 30.5, MCHC 32.0, RDW 12.9, Plt Count 215, MPV 9.2, Neut % (Auto) 68.1, Lymph % (Auto) 20.6, Tillman % (Auto) 8.2, Eos % (Auto) 2.6, Baso % (Auto) 0.2, Neut # (Auto) 4.2, Lymph # (Auto) 1.3, Tillman # (Auto) 0.5, Eos # (Auto) 0.2, Baso # (Auto) 0.0, Sodium 139, Potassium 5.1, Chloride 102, Carbon Dioxide 32 H, Anion Gap 10.1, BUN 36 H, Creatinine 1.40 H, Estimated Creat Clear 38, Estimated GFR 36 L, Est GFR ( Amer) 43 L, Glucose 116 H, Calcium 9.7, Total Bilirubin 0.7, AST 26, ALT 15, Alkaline Phosphatase 81, C-Reactive Protein 6.0 H, Total Protein 6.3, Albumin 3.9, Globulin 2.4, Albumin/Globulin Ratio 1.6 08/02/24 13:04 08/02/24 13:04 Orders (Tests/Meds): ED MEDICATIONS Discontinued Medications Generic Name Dose Route Start Last Admin Trade Name Freq PRN Reason Stop Dose Admin Acetaminophen 1,000 mg 08/02/24 12:48 08/02/24 12:53 Acetaminophen 500mg Tab PO 08/02/24 12:49 1,000 mg ONCE ONE Administration Methocarbamol 1,500 mg 08/02/24 12:08 08/02/24 12:51 Methocarbamol 500mg Tablet PO 08/02/24 12:09 1,500 mg ONCE ONE Administration ORDERS Category Date Time Status POCUS Point of Care (ER Only) Stat Exams 08/02/24 12:06 Completed CBC w/Auto Diff [Complete Blood Count Auto Diff] Stat Lab 08/02/24 13:04 Results CMP [Comprehensive Metabolic Panel] Stat Lab 08/02/24 13:04 Completed CRP [C-Reactive Protein] Stat Lab 08/02/24 13:04 Completed ESR [Erythrocyte Sedimentation Rate] Stat Lab 08/02/24 13:04 Results HIV Combo Stat Lab 08/02/24 13:04 Received Hepatitis C Ab Qual. W/ RFX Stat Lab 08/02/24 13:04 Received Medical Decision Narrative: 84-year-old female presenting with right lower extremity swelling. No history of injuries to this leg, injections, surgery, etc. States that it is her right knee that hurts primarily and hurts posteriorly. She does state that she has some swelling in the right leg as compared to the left and this is more than usual. No fevers or chills, redness, systemic signs or symptoms, trauma, or any other concerning history. No history of DVTs or PEs. History was obtained via conversation with patient. On arrival, patient hemodynamically stable, alert, oriented x4, appropriate, GCS 15, moving all extremities spontaneously, pupils equal and reactive to light. Full physical exam performed and significant for very clinically well-appearing female who is in no acute distress. She does have tenderness about her right knee and walked in using a cane. Flexion and extension are intact and largely nonpainful. No tenderness about the joint or joint space. Structurally intact right lower extremity. Pulses equal and symmetric in upper and lower extremities. The right lower extremity is appreciably more swollen than the left, but no palpable cord, redness, warmth, or any other concerns. Differential includes DVT, lymphedema, septic joint, joint effusion, among. Patient placed on continuous cardiac monitoring and continuous pulse ox with initial blood pressure 165/86, heart rate 94, saturation 98% on room air. Patient was given IV Tylenol for symptomatic management and correction of underlying abnormalities. Workup independently interpreted and significant for nonactionable CBC or white count differential. Patient's chemistry with stable CKD creatinine 1.4. CRP mildly elevated at 6, but negative ESR. On independent interpretation of imaging, patient has no lower extremity DVT. X-rays of the right lower extremity at the knee were considered, not deemed necessary. Patient not having any trauma, able to bear weight, just having mild to moderate pain. Given patient presentation, workup, history, this most likely represents dependent edema versus lymphedema. Recommended the patient wear compression stockings and follow-up with family doctor. Because patient at baseline without signs or symptoms of clinical decompensation, deemed appropriate for discharge. Results were relayed to patient who voiced understanding and were agreeable to outpatient management and follow up. I discussed my clinical impression with patient and answered all questions. At this time, the evidence for any other entities in the differential is insufficient to warrant any further testing or ED observation. This was explained as well. Advisory was given that persistent or worsening symptoms require further evaluation. I confirmed the understanding of this discussion. Slip Laster disclaimer Much of this encounter note is an electronic crop pest control specialist spoken language to printed text. Electronic crop pest control specialist of the spoken language may permit errors. Although I have reviewed the note, some errors may still exist. Procedures Limited Ultrasound Indication:: Limited DVT ultrasound Indication: Limited compression ultrasonography of the right lower extremity was performed to evaluate for non-compressibility of the deep veins in the patient. The ultrasound was performed with the following indications, as noted in the H&P: Right lower extremity swelling and pain Identified structures: Right common femoral vein, femoral vein, popliteal vein were examined. Findings: Lower Extremity: Right CFV: Good compressibility or Non-compressible or Not performed Right FV: Good compressibility or Non-compressible or Not performed Right Popliteal vein: Good compressibility or Non-compressible or Not performed Impression: Normal right lower extremity DVT ultrasound with no evidence of DVT Images were saved to permanent archive The study was technically adequate CPT: 45862-22-PY [id number] [id number] (complete bilateral study) This study was performed by me, and I personally interpreted all images/videos. Based on my clinical judgement, these images were adequate and did not necessitate further imaging Critical Care Critical Care Time Critical Care Time: No
--- NOTE | 2024-08-02 12:45 | PC.NURSE ---
pt stuck for iv x3, all unsuccessful. call made to lab for them to stick pt for blood.
[2024-08-02] MEDS: METHOCARBAMOL 500MG TABLET 1500 MG PO (12:51)
[2024-08-02] MEDS: ACETAMINOPHEN 500MG TAB 1000 MG PO (12:53)
[2024-08-02 13:19] LABS: Basophils % 0.2 % (0.1-2.0); Eosinophils # 0.2 K/mm3 (0.0-0.4); Eosinophils % 2.6 % (0.1-12.0); Hematocrit 36.2 % (37.0-47.0); Hemoglobin 11.6 g/dL (12.2-16.2); Lymphocytes # 1.3 K/mm3 (0.7-4.5); Lymphocytes % 20.6 % (10-50); Mean Corpuscular Hemoglobin 30.5 pg (27.0-31.2); Mean Corpuscular Volume 95.3 fl (81-99); Mean Platelet Volume 9.2 fl (7.4-10.4); Monocytes # 0.5 K/mm3 (0.1-1.0); Monocytes % 8.2 % (1.7-9.3); Neutrophils # 4.2 K/mm3 (1.8-7.8); Neutrophils % 68.1 % (37.0-80.0); Platelet Count 215 K/mm3 (142-424); Red Cell Distribution Width 12.9 % (11.5-17.5); White Blood Count 6.2 K/mm3 (4.8-10.8)
[2024-08-02 13:25] LABS: Albumin Level 3.9 g/dl (3.5-5.0); Chloride 102 mmol/L (98-107); Sodium 139 mmol/L (136-145)
[2024-08-02 13:26] LABS: Potassium 5.1 mmoL/L (3.5-5.1)
[2024-08-02 13:28] LABS: Alanine Aminotransferase 15 U/L (12-78); Anion Gap 10.1 mEq/L (5-15); Aspartate Amino Transferase 26 U/L (14-36); Blood Urea Nitrogen 36 mg/dl (7-17); Carbon Dioxide 32 mmol/L (22.0-30.0); Creatinine Clearance Estimated 38 mL/min (50-200); Estimated Glomerular Filt Rate 36 ml/min (>60); GFR (African American) 43 ML/MIN (>60)
[2024-08-02 13:29] LABS: Albumin/Globulin Ratio 1.6 (1.1-1.8); Alkaline Phosphatase 81 U/L (38-126); Bilirubin,Total 0.7 mg/dl (0.2-1.3); Calcium 9.7 mg/dl (8.4-10.2); Globulin 2.4 g/dL (1.3-3.2); Glucose 116 mg/dl (74-100); Total Protein,Serum 6.3 g/dl (6.3-8.2)
[2024-08-02 13:51] VITALS: BP 120/80; PULSE 80; RESP 13; TEMP 36.7
[2024-08-02 14:09] LABS: Erythrocyte Sedimentation Rate 38 mm/hr (0-30)
[2024-08-02 14:35] LABS: Hepatitis C Ab Qual. W/ RFX NEGATIVE (Negative)
[2024-08-02 18:43] LABS: HIV Combo NEGATIVE (Negative)
== END 2024-08-02 14:06 | disposition home or self-care (01) ==
PROVIDERS: Emergency Provider Emergency Medicine; PCP Internal Medicine
DX: M79.661 Pain in right lower leg (principal); M25.561 Pain in right knee; R22.41 Localized swelling, mass and lump, right lower limb
CPT/HCPCS: 36415; 80053; 85025; 85651; 86140; 86803; 87389; 99283

== ENCOUNTER 2024-08-08 14:10 | Outpatient (CLI) | payer MEDICARE, SELFPAY ==
--- NOTE | 2024-08-08 14:13 | XR_ITS ---
FINAL REPORT CLINICAL HISTORY: rt knee pain, fall in feb FINDINGS: RIGHT KNEE Three views demonstrate moderate joint space narrowing of the lateral compartment with spurring. There is minimal lateral subluxation. No acute fracture is identified. There is no joint effusion. IMPRESSION: Arthritic changes most pronounced in the lateral compartment. Reviewed, Interpreted and Dictated by Yo Loomis MD Transcribed by Yuli Mishra Authenticated and [facility]
--- OUTSIDE RECORDS SUMMARY | 2024-08-10 21:21 | XMS_ITS | Data Portability ---
Author Organization [facility] JACK Guzmán [place] [facility]OS[place] Address [address] [place] [address] Care Team Providers Care Student Services Vice President Name Role Phone DELVIS HUNTER Primary Care Provider [phone] Assessment No assessment recorded. Plan of Treatment Reminders Order Date Submit Date Provider Last Modified By Organization Details Last Modified Time Details Appointments None recorded. Lab None recorded. Referral None recorded. Procedures None recorded. Surgeries None recorded. Imaging CT, neck, soft tissue, w/ contrast 2021 022 [facility] Radiology [facility], [address] [facility], [place], [address], 11:50:17 Medication Orders None recorded. Patient TargetsNo targets recorded. Patient Instructions Encounter Date Encounter Id Patient Instructions Last Modified By Organization Details Last Modified Time 08/14/2021 [id number] 1. Laryngoscopy Flex- full risks, complications, and benefits of in-office procedure have been thoroughly discussed. Understanding was expressed, informed consent given, and we will proceed with the discussed in-office treatment plan. 2. Pictures obtained 3.Neurology consult to be determined. 4.Follow up alevarity Not available 08/14/2021 13:08:09 It was a karlie garrett evaluating this patient today. Patient reports: {{ RIGHT EAR PAIN#}} Examination/workup suggests: {{WAX IMPACTION CLEANED UNDER MICROSCOPE. AUDIO REVIEWED. SCOPE SHOWS INFLAMMATION. SCOPE SHOWS NO CONCERNING MASSES.*}} {{ RIGHT CERUMEN CLEANED. NORMAL OTOMICROSCOPY#}} We discussed my recommendation for {{ CT NECK W, #}} {{Recheck with results* Recheck 1 week Recheck 2 weeks Recheck 3-4 weeks Recheck 3 months Recheck 6 months Recheck 1 year}} {{with results with audio}}. We reviewed the pertinent anatomy and pathophysiology and all questions were answered. Thank you for inviting me to participate in the care of this patient today. shiraz Not available 08/14/2021 13:26:53 09/18/2021 [id number] 1. Throid US to be ordered 2. Follow up after US alevarity Not available 09/18/2021 10:57:46 It was a karlie garrett seeing this patient in followup today. Patient reports: {{overall doing well* symptoms persist}} Examination/workup: {{WAX IMPACTIONS CLEANED UNDER MICROSCOPE. SCOPE SHOWS INFLAMMATION. SCOPE SHOWS NO CONCERNING MASSES. CT SHOWS INCIDENTAL THYROID MASS#}} We discussed my recommendation for {{SURGERY. CT and recheck w results. US and recheck w results.* MRI and recheck w results. New medication regimen. Strict sinus regimen. Strict water precautions. Contin ue drops/medication. S weet oil weekly.}} We reviewed the pertinent anatomy and pathophysiology and all questions were answered. shiraz Not available 09/18/2021 14:17:44 10/02/2021 [id number] 1. U/S results reviewed with the patient 2. Thyroid u/s guided FNA 3. f/u with results [email or web address] Not available 10/02/2021 10:54:11 Reason for Referral None Reported. Results Created Date Observation Date Name Description Value Unit Range Abnormal Flag Note LastModifiedBy Organization Detail LastModifiedTime 10/22/19 22 10/21/2021 CYTOL OGY cytology SEE BELOW Depar tment of Patho logy Medic al Cytol ogy Repor t NAME: GONZALEZ RAMSEY PATH. :FC-2 20 Copie s to: SHANE WATTSR A SOURC E OF SPECI MEN: FINE NEEDL E ASPIR ATE, RIGHT THYRO ID NODUL E/ US-DI RECTE D Volum e: 7 mL Fixed : Y Blood y: N Clott ed: N Clear : N Other : FIXED IN CYTOL YT LIGHT PINK 2 BUZZ DE SLIDE S IN DQ 2 BUZZ DE SLIDE S IN SPRAY FIXAT ROSEMARIE 3 PASSE S PERFO RMED - 2 PASSE S FOR SMEAR S, 1 PASS FOR AFIRM A CLINI FRANCY INFOR MATIO N: E04.1 SIZE AND LOCAT ION OF DARCIIO N: RIGHT THYRO ID 1.7 X 1.7 X 2.4 cm DURAT ION OF LESIO N: BY IMAGI NG PREVI OUS SIMIL AR LESIO NS: NONE OTHER PRIMA RY TUMOR S: NONE X-RAY RESUL TS: SOLID HYPOE CHOIC WITH CALCI FICAT ION TR4 MEDIC ATION : SEE ATHEN A NET PREVI OUS HISTO RY: BCC - VAGIN A, NON SMOKE R FAMIL Y HISTO RY: BREAS T CANCE R, GOITE R/NOD ULES AFIRM A COLLE CTED [id number] Diagn osis: Right thyro id nodul e, ultra sound direc saira fine needl e aspir ate, ThinP rep and smear s: Benmichael n (Ana esda categ ory II). Collo id, benig n appea ring folli cular cells , and Hurth le cells are seen. Favor a benig n thyro id nodul e. Immed iate evalu ation : Cells prese nt. EL Comme nt: All cytol ogic mater ial has been revie wed. BRANDEN Arroyo MD Elyssa d Out Date: 10/22 , 17:50 Page 1 of 1 Not Available [facility] [address] [facility], [place], [address], 10/22/2021 17:52:02 08/21/19 22 08/19/2021 CT, neck, soft tissu e, w/ contr ast [facility] [address] [place] [address] Bandar t Name: SHANA J TOI wilson : [birth year] Patien t Orderi ng Provid er: SARBJIT LEVIN DAVID EXAM DATE: 2021 EXAM: CT SOFT TISSUE NECK WITH CONTRA ST CLINIC AL INFORM ATION: Pain in the right ear for severa l years. TECHNI QUE: A baseli ne serum creati nine with eGFR was obtain ed prior to inject ion of contra st medium due to the patien ts risk factor s for AD. Calcul ated eGFR at time of exam was GFR [address] images of the neck were obtain ed after inject ion of 100 mL Optira y 320 (1 x 100 mL bottle of [facility] 90586- 1323-1 1). None was wasted and discar ded. COMPAR MICHAEL: None. FINDIN GS: LOWER CRANIU M: No obviou s intrac ranial abnorm ality. Visual ized portio ns of the orbits and sinuse s are normal . Deviat ion of the nasal septum is seen. SUPRAH YOID REGION : Nasoph arynx, oropha rynx, vallec ulae and epiglo ttis are normal . Deep spaces of the neck appear normal . Bilate ral paroti d and subman dibula r saliva ry glands are normal . No lympha denopa thy or mass. INFRAH YOID REGION : Hypoph arynx, pirifo rm sinuse s and vocal cords are normal . Thyroi d gland is normal in size. 9 mm dense calcif icatio n is seen in the right lobe of the thyroi d gland. No airway abnorm ality. No lympha denopa thy or mass. UPPER CHEST: Lung apices are normal . No obviou s medias tinal lympha denopa thy is seen. Vessel s appear normal . CERVIC AL SPINE: Mild degene rative change s are noted. IMPRES SABRINA: 1. No cause of the of pain has been demons trated . 2. Deviat ion of the nasal septum . 3. Eviden ce calcif ied nodule in the right lobe of the thyroi d gland. No clinic al signif icance . Interp reted By: Ariel Young MD Electr onical ly Signed By: Ariel Young MD on 022 11:[address] [facility] [address] [place] [address] , [place], [address], 09/02/2021 14:58:46 09/26/19 22 09/25/2021 US, neck, soft tissu e [facility] [address] [place] [address] [place] [address] Patijonathan t Name: SHANA Nirmala CM Bandar wilson : [birth year] Patijonathan t Orderi ng Provid er: SARBJIT LEVIN DAVID EXAM DATE: 2021 EXAM: US ECHO THYROI D OR PAROTI D CLINIC AL INFORM ATION: Follow -up right thyroi d nodule on recent CT neck TECHNI QUE: Multip le sonogr aphic images of the thyroi d gland were obtain ed. COMPAR MICHAEL: None. FINDIN GS: Isthmu s measur es 0.4 cm in thickn ess. Right lobe measur es 4 x 2.4 x 2 cm. Left lobe measur es 3.1 x 0.9 x 1 cm. The gland is normal in size and homoge neous in echote xture. Bilate ral thyroi d nodule s are seen. The domina nt nodule on the right which was seen on CT measur es 1.7 x 1.7 x 2.4 cm in width, height and length . The nodule is solid - 2; hypoec hoic - 2; wider than tall - 0; shows ill-de fined margin - 0; and macroc alcifi cation s - 1. Total TI-RAD S POINTS = 5. ACR TI-RAD S Catego ry = TR4 - Modera tely suspic ious. The domina nt nodule on the left is a 3 mm colloi d cyst. IMPRES SABRINA: The abnorm ality seen on CT is a catego ry TR-4 nodule in the right lobe of thyroi d gland. TR4 lesion s are consid ered modera tely suspic ious. Becaus e this lesion is larger than 1.5 cm in maximu m diamet er, US guided FNA is recomm ended as per ACR recomm endati on. Interp reted By: Ariel Young MD Electr onical ly Signed By: Ariel Young MD on 022 4:19 PM [facility] [address], [place], [address], 10/02/2021 16:23:10 10/22/19 22 10/21/2021 US thyro id nodul e fna only [address] [place] [address] Bandar wilson Name: SHANA wilson : [birth year] Patien t Orderi ng Provid er: SARBJIT HERNANDEZ EXAM DATE: 2021 EXAM: US THYROI D NODULE FNA ONLY SITE: Thyroi d nodule in the right lobe CLINIC AL INDICA TION: Size and sonogr aphic appear ance of the abnorm ality. OPERAT OR: Ariel Young M.D. MRCP., FRCR. TECHNI QUE AND FINDIN GS: Prelim inary sonogr aphic examin ation showed the right lobe nodule . Inform ed writte n consen t was obtain ed. Under sonogr aphic guidan ce, asepti c techni que and local anesth etic, 3 passes were made with 27-gau ge hypode rmic needle s throug h this area. IMMEDI ATE COMPLI CATION S: None. DISPOS AL AND ADEQUA CY OF SPECIM EN: Specim ens were given to the Cytopa tholog ist on site. IMPRES SABRINA: Uneven tful right lobe thyroi d nodule FNA. Interp reted By: Ariel Young MD Electr onical ly Signed By: Ariel Young MD on 022 12:33 PM [facility] [address] [place], [address], 10/21/2021 19:16:23 Result Notes None recorded. Procedures Surgical History Date Name Laterality Status Provider Name and Address Organization Details Recorded Time 08/15/19 22 Cerumen removal - Instruments, Unilateral completed Betina Levarity [facility] 08/14/2021 13:00:04 08/15/19 22 Laryngoscopy Flex completed SARBJIT GONZALES MD [address] [place], [address], [facility] 08/14/2021 13:25:44 hysterectomy completed Annika Mcknight [facility] 08/14/2021 12:42:24 operation on urinary bladder completed Annika Mcknight [facility] 08/14/2021 12:42:50 excision of basal cell carcinoma completed Annika Mcknight [facility] 08/14/2021 12:43:54 procedure on gallbladder completed Annika Mcknight [facility] 08/14/2021 12:44:05 cataract surgery completed Annika [facility] 08/14/2021 12:44:28 Imaging Results Imaging Date Name Status LastModified by Organiz ation Details LastModified Time 08/19/2021 CT, neck, soft tissue, w/ contrast completed [address] [facility] [address] , [place], [address], 09/02/2021 14:58:46 09/25/2021 US, neck, soft tissue completed [facility] [address] [place], [address], 10/02/2021 16:23:10 10/21/2021 US thyroid nodule fna only completed [facility] [address] [place], [address], 10/21/2021 19:16:23 Procedure Notes None recorded. Medical Equipment None Reported. Allergies Allergen ID Allergen Name Allergen Category Reaction Reaction Severity Criticality Documentation Date Start Date Code Code System Note Provider Name and Address Organization Details Recorded Time 520232 Naprosyn medicatio n Not available Not available Not available 03/26/20162013 2 RxNorm Comme nt: Creat ed By: Danie Marquis; Creat ed Date: 10:17 :30 AM; Not Available [facility] 6 11:51:34 191867 Lipitor medicatio n Not available Not available Not available 03/26/20162013 92149 5 RxNorm Comme nt: Creat ed By: Danie Marquis; Creat ed Date: 10:16 :56 AM; Not Available [facility] 6 11:51:34 008945 Celestone medicatio n Not available Not available Not available 03/26/2016201369 9 RxNorm Comme nt: Creat ed By: Danie Marquis; Creat ed Date: 8/8/2 014 10:17 :11 AM; Not Available [facility] 6 11:51:34 882294 Substance with sulfonami de structure and antibacte rial mechanism of action (substanc e) medicatio n Not available Not available Not available 03/27/20162007 15798 8003 SNOMED Comme nt: Creat ed By: Zarina Cm saira Date: 008 11:37 :28 AM; Not Available [facility] 6 05:22:47 Medications Name Sig Start Date Stop Date Status Note LastModified by Organization Details LastModified Time metformin 500 mg tablet Take 1 tablet twice a day by oral route. active Not Available Not Available No t Available ibuprofen 800 mg tablet Every six hours active Duration: 30 days;Frequ ency: q6h;Medica tion Descriptio n: ibuprofen; Dosage:1; Route:oral ; refills:0; Quantity:6 0 tablet Not Available Not Available Not Available lisinopril 20 mg tablet Bedtime active Duration: 30 days;Frequ ency: hs;Medicat ion Descriptio n: lisinopril ; Dosage:1; Route:oral ; refills:5; Quantity:3 0 tablet Not Available Not Available Not Available tramadol 50 mg tablet active Medication Descriptio n: tramadol; Route:oral ; refills:0 Not Available Not Available Not Available Vivelle-Do t 0.075 mg/24 hr transderma l patch active Medication Descriptio n: estradiol; Route:sheth sdermal; refills:0 Not Available Not Available Not Available atenolol 50 mg tablet Daily active Duration: 30 days;Frequ ency: daily;Medi cation Descriptio n: atenolol; Dosage:1; Route:oral ; refills:0; Quantity:3 0 tablet Not Available Not Available Not Available hydrocodon e 10 mg-acetami nophen 300 mg tablet Take 1 tablet every 6 hours by oral route. active 7.5-325 Not Available Not Available No t Available melatonin 10mg active Not Available Not Davina ilable Not Available tizanidine active Medicatio n Descriptio n: tizanidine ; Route:oral ; refills:0 Not Available Not Available Not Available citalopram active Medicatio n Descriptio n: citalopram ; Route:oral ; refills:0 Not Available Not Available Not Available gabapentin active Medicatio n Descriptio n: gabapentin ; refills:0 Not Available Not Available Not Available Calcium 600 + D Two times a day active Frequency: bid;Medica tion Descriptio n: calcium-vi tamin D; Dosage:1; Route:oral ; refills:0 Not Available Not Available Not Available Vitals Date Recorded Body height Body mass index (BMI) Body weight Body temperature Heart rate Systolic blood pressure Diastolic blood pressure Provider Name and Address Organization Details Last Updated DateTime 2 160.02 cm 31.2 kg/m2 81642.6 6 g 97.3 [degF] 59 /min 112 mm[Hg] 48 mm[Hg] [facility] 2 12:51:20 Date Recorded Body height Body mass index (BMI) Body weight Body temperature Heart rate Systolic blood pressure Diastolic blood pressure Provider Name and Address Organization Details Last Updated DateTime 2 160.02 cm 32 kg/m2 46138.4 3 g 97.3 [degF] 89 /min 92 mm[Hg] 60 mm[Hg] [facility] 2 10:50:06 Date Recorded Body height Body mass index (BMI) Body weight Body temperature Heart rate Systolic blood pressure Diastolic blood pressure Provider Name and Address Organization Details Last Updated DateTime 2 160.02 cm 32.1 kg/m2 34673.6 2 g 97.3 [degF] 76 /min 114 mm[Hg] 44 mm[Hg] Merle Vargas [facility] 2 10:33:50 Social History None recorded. Functional Status None recorded. Mental Status None recorded. Family History Relationship Description Onset Age of this Age Resolved Age Notes LastModified by Organization Details LastModified Time Mother Family history of breast cancer Not available 2021 12:41:18 Father Hypertensive disorder [email or web address] Not available 2021 12:41:37 Brother Hypertensive disorder [email or web address] Not available 2021 12:41:46 Brother Diabetes mellitus [email or web address] Not available 2021 12:42:03 Medical History Condition Response Diabetes Y Kidney Disease Y Sleep Disorder Y Gynecological HistoryNo gynecological history recorded. Obstetrics History GPAL:G 0 P 0 0 0 0 Past Encounters Encounter ID Performer Location Encounter Start Date Encounter Closed Date Diagnosis/Indication Diagnosis SNOMED-CT Code Diagnosis ICD10 Code Diagnosis Note [id number] [facility] [address] [place] [address] 08/14/2021 12:26:20 08/19/2021 23:07:45 Otalgia of right ear 7695978829 H92.01 -REFERRED. 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 08/14/21 SCOPE REVEALS NO CONCERNING MASSES-NEE DS CT NECK W/ CONTRAST: NO CONCERNING MASSES-08/31 symptoms have resolved. If symptoms return may recheck with me and consider neurology consult Temporoman dibular joint disorder 28978714 M26.609 SUSPECT MILD Neuralgia 56963746 M79.2 Cervico-oc cipital neuralgia 37006172 M54.81 -RIGHT Thyroid nodule 002440239 E04.1 09/18/2021 recommend thyroid ultrasound . Incidental finding on CT for other reason. Recheck with results [id number] MD [facility] ZURITA [facility] CLOSED [address] [place] [address] 10/02/2021 10:27:21 10/02/2021 11:02:31 Thyroid nodule 421588387 E04.1 09/18/2021 recommend thyroid ultrasound . Incidental finding on CT for other reason. Recheck with results10/02 U/s results reviewed right Nodule 2.4 cm. Recommend FNA suspicious right thyroid nodule recheck with results Otalgia of right ear 762 4940040 H92.01 -REFERRED. 08/14/21 SCOPE REVEALS NO CONCERNING MASSES-NEE DS CT NECK W/ CONTRAST: NO CONCERNING MASSES-08/31 symptoms have resolved. If symptoms return may recheck with me and consider neurology consult Temporoman dibular joint disorder 21534697 M26.609 SUSPECT MILD Neuralgia 08777149 M79.2 Cervico-oc cipital neuralgia 61770324 M54.81 -RIGHT Health Concerns Section Related Observation LastModified by Organization Detai ls LastModified Time None Recorded Concern Status LastModified by Organization Details LastModified Time None Recorded Advance Directives Directive None Recorded Payers Encounter Date Sequence Insurance Name Policy Number Policy Nagy Covered Member ID Nagy Member ID Guarantor Name 08/14/2021 1 [place] Shana Cm [id number] Shana Cm 08/14/2021 2 [employer] (MEDICARE SUPPLEMENT) Shana Cm [id number] Shana Cm 09/18/2021 1 [place] Shana Cm [id number] Shana Cm 09/18/2021 2 [employer] (MEDICARE SUPPLEMENT) Shana Cm [id number] Shana Cm 10/02/2021 1 [place] Shana Cm [id number] Shana Cm 10/02/2021 2 [employer] (MEDICARE SUPPLEMENT) Shana Cm [id number] Shana Cm Notes Date Note Type Note Provider Name and Address Organization Details Recorded Time 08/14/2021 text/html I am seeing this patient today in consultation at the request of my colleague {{ Delvis Hunter#}} for {{EAR* NOSE SINUS THROAT NECK MOUTH multiple ENT}} concerns. Patient reportsEarache in Right ear. Symptoms have been going on for several weeks to months now. The pain occurs much of the time. She points to her right ear and the back of her head on the right. 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 Since last visit patient reports {{resolution* limi saira improvement no change worsening}} in symptoms with {{time* flonase/sa line medication changes}}. SARBJIT GONZALES MD [address] [place] [address], [address], [facility] 09/18/2021 14:17:58 10/02/2021 text/html This patient returns for recheck of {{EARS NOSE THROAT NECK SINUS HEADAC HE ALLERGIES multi ple ENT concerns thyroid#} }. Shana denies any pain or trouble swallowing since last visit. US Thyroid performed [place] [address] [place] [address], [address], [facility] 10/02/2021 15:49:29 OBGyn Episode No OBEpisode recorded.
--- OUTSIDE RECORDS SUMMARY | 2024-08-10 21:21 | XMS_ITS ---
Author Organization Unknown TREATMENT PLAN Planned [facility] Start Date Provider Encounter for Check-up [id number] Psychiatric
== END 2024-08-08 23:59 | disposition home or self-care (01) ==
LOC: RAD 14:11
PROVIDERS: PCP Internal Medicine; Visit Provider Physician Assistant Surgical
DX: M25.561 Pain in right knee (principal); M79.89 Other specified soft tissue disorders
CPT/HCPCS: 73562

== ENCOUNTER 2024-08-14 15:35 | Outpatient (CLI) | payer MEDICARE, SELFPAY ==
[2024-08-14 18:05] LABS: Chloride 104 mmol/L (98-107); Potassium 5.3 mmoL/L (3.5-5.1); Sodium 139 mmol/L (136-145)
[2024-08-14 18:08] LABS: Anion Gap 11.3 mEq/L (5-15); Blood Urea Nitrogen 29 mg/dl (7-17); Calcium 9.1 mg/dl (8.4-10.2); Carbon Dioxide 29 mmol/L (22.0-30.0); Estimated Glomerular Filt Rate 47 ml/min (>60); GFR (African American) 57 ML/MIN (>60); Glucose 122 mg/dl (74-100)
== END 2024-08-14 23:59 | disposition home or self-care (01) ==
LOC: LAB.DROPOF 08-15 15:44
PROVIDERS: PCP Internal Medicine; Visit Provider Internal Medicine
DX: I89.0 Lymphedema, not elsewhere classified (principal); I87.2 Venous insufficiency (chronic) (peripheral); E11.42 Type 2 diabetes mellitus with diabetic polyneuropathy; E11.22 Type 2 diabetes mellitus with diabetic chronic kidney disease; I12.9 Hypertensive chronic kidney disease with stage 1 through stage 4 chronic kidney disease, or unspecified chronic kidney disease; N18.32 Chronic kidney disease, stage 3b
CPT/HCPCS: 80048

== ENCOUNTER 2024-10-02 13:48 | Outpatient (CLI) | payer MEDICARE, SELFPAY ==
--- OUTSIDE RECORDS SUMMARY | 2024-10-02 13:52 | XMS_ITS | Data Portability ---
Author Organization [facility] JACK Guzmán [place] CLOSED Address [address] [facility] [address] [place] [address] Care Team Providers Care Permit Coordinator Name Role Phone DELVIS HUNTER Primary Care Provider Assessment No assessment recorded. Plan of Treatment Reminders Order Date Submit Date Provider Last Modified By Organization Details Last Modified Time Details Appointments None recorded. Lab None recorded. Referral None recorded. Procedures None recorded. Surgeries None recorded. Imaging CT, neck, soft tissue, w/ contrast [address] [facility] Radiology [facility], [address] [facility], [place], [address], 11:50:17 Medication Orders None recorded. Patient TargetsNo targets recorded. Patient Instructions Encounter Date Encounter Id Patient Instructions Last Modified By Organization Details Last Modified Time 08/14/2021 [id number] 1. Laryngoscopy Flex- full risks, complications, and benefits of in-office procedure have been thoroughly discussed. Understanding was expressed, informed consent given, and we will proceed with the discussed in-office treatment plan. 2. Pictures obtained 3.Neurology consult to be determined. 4.Follow up alevarity Not available 08/14/2021 13:08:09 It was a karlie e evaluating this patient today. Patient reports: RIGHT EAR PAIN Examination/workup suggests: SCOPE SHOWS NO CONCERNING MASSES. RIGHT CERUMEN CLEANED. NORMAL OTOMICROSCOPY We discussed my recommendation for CT NECK W, Recheck with results . We reviewed the pertinent anatomy and pathophysiology and all questions were answered. Thank you for inviting me to participate in the care of this patient today. [email or web address] Not available 08/14/2021 13:26:53 09/18/2021 [id number] 1. Throid US to be ordered 2. Follow up after US alevarity Not available 09/18/2021 10:57:46 It was a pleasur e seeing this patient in followup today. Patient reports: overall doing well Examination/workup: WAX IMPACTIONS CLEANED UNDER MICROSCOPE. SCOPE SHOWS INFLAMMATION. SCOPE SHOWS NO CONCERNING MASSES. CT SHOWS INCIDENTAL THYROID MASS We discussed my recommendation for US and recheck w results. We reviewed the pertinent anatomy and pathophysiology and all questions were answered. [email or web address] Not available 09/18/2021 14:17:44 10/02/2021 [id number] 1. U/S results reviewed with the patient [...] PATH. :FC-2 20 Copie s to: SHANE ENDRA CHOPR A SOURC E OF SPECI MEN: FINE [...] N: E04.1 SIZE AND LOCAT ION OF LESIO N: RIGHT THYRO ID 1.7 X 1.7 X 2.4 cm DURAT ION OF LESIO N: BY IMAGI NG PREVI OUS SIMIL AR HUMBERTO NS: NONE OTHER PRIMA RY TUMOR S: NONE X-RAY RESUL TS: SOLID HYPOE CHOIC WITH CALCI FICAT ION TR4 MEDIC ATION : SEE ATHEN A NET PREVI OUS HISTO RY: BCC - VAGIN A, NON SMOKE R FAMIL Y HISTO RY: BREAS T CANCE R, GOITE R/NOD ULES AFIRM A COLLE CTED [id number] Diagn osis: Right thyro id nodul e, ultra sound direc saira fine needl e aspir ate, ThinP rep and smear s: Benig n (Ana esda categ ory II). Collo [...] 17:50 Page 1 of 1 Not Available [facility] [address] [facility], [place], [address], 10/22/2021 17:52:02 08/21/19 22 08/19/2021 CT, neck, soft tissu e, w/ contr ast [facility] [address] [facility] [place] [address] Bandar wilson Name: SHANA CM Soumyajonathan wilson : [birth year] Patijonathan t Orderi ng Provid er[facility]: 2021 EXAM: CT SOFT [...] 320 (1 x 100 mL bottle of [facility] [address]- 1323-1 1). None was wasted and discar [...] Ariel Young MD on 022 11:[address] Radiology [address], [place], [address], 09/02/2021 14:58:46 09/26/19 22 09/25/2021 US, neck, soft tissu e [facility] [address] [place] [address] Bandar wilson Name: SHANA Nirmala wilson : [birth year] Bandar t Orderi [facility] er: SARBJIT WOODARDY EXAM DATE: 2021 EXAM: US ECHO THYROI [...] Ariel Young MD on 022 4:19 PM [facility] Radiology [address], [place], [address], 10/02/2021 16:23:10 10/22/19 22 10/21/2021 US thyro id nodul e fna only [address] [address] Bandar wilson Name: SHANA wilson : [birth year] Bandar wilson Orderi ng Provid er: SARBJIT HERNANDEZ EXAM [...] Ariel Young MD on 022 12:33 PM [facility] Radiology [facility] [address] [place], [address], 10/21/2021 19:16:23 Result Notes None recorded. Procedures Surgical History Date Name Laterality Status Provider Name and Address Organization Details Recorded Time 08/15/19 22 Cerumen removal - Instruments, Unilateral completed Betina Levarity [facility] 08/14/2021 13:00:04 08/15/19 22 Laryngoscopy Flex completed SARBJIT GONZALES MD [address] [place], [address], [facility] 08/14/2021 13:25:44 hysterectomy completed [facility] 08/14/2021 12:42:24 operation on urinary bladder completed [facility] 08/14/2021 12:42:50 excision of basal cell carcinoma completed [facility] 08/14/2021 12:43:54 procedure on gallbladder completed [facility] 08/14/2021 12:44:05 cataract surgery completed [facility] 08/14/2021 12:44:28 Imaging Results None recorded. Procedure Notes None recorded. Medical Equipment None Reported. Allergies Allergen ID Allergen Name Allergen Category Reaction Reaction Severity Criticality Documentation Date Start Date Code Code System Note Provider Name and Address Organization Details Recorded Time [id number] Naprosyn medicatio n Not available Not available Not available 03/26/20162013 2 RxNorm Comme nt: Creat ed By: Danie Marquis; Creat ed Date: 10:17 :30 AM; Not Available [facility] 6 11:51:34 253431 Lipitor medicatio n Not available Not available Not available 03/26/20162013 46298 5 RxNorm Comme nt: Creat ed By: Danie Marquis; Creat ed Date: 10:16 :56 AM; Not Available [facility] 6 11:51:34 407470 Celestone medicatio n Not available Not available Not available 03/26/20162013 95713 9 RxNorm Comme nt: Creat ed By: Danie Marquis; Creat ed Date: 10:17 :11 AM; Not Available [facility] 6 11:51:34 418768 Substance with sulfonami de structure and antibacte rial mechanism of action (substanc e) medicatio n Not available Not available Not available 03/27/20162007 07771 8003 SNOMED Comme nt: Creat ed By: Zarina Cm saira Date: 11:37 :28 AM; Not Available [facility] 6 05:22:47 Medications Name Sig Start Date [...] Updated DateTime 2 160.02 cm 31.2 kg/m2 81278.6 6 g 97.3 [degF] 59 /min 112 mm[Hg] 48 mm[Hg] [facility] 2 12:51:20 Date Recorded Body height Body mass index (BMI) Body weight Body temperature Heart rate Systolic blood pressure Diastolic blood pressure Provider Name and Address Organization Details Last Updated DateTime 2 160.02 cm 32 kg/m2 57464.4 3 g 97.3 [degF] 89 /min 92 mm[Hg] 60 mm[Hg] [facility] 2 10:50:06 Date Recorded Body height Body mass index (BMI) Body weight Body temperature Heart rate Systolic blood pressure Diastolic blood pressure Provider Name and Address Organization Details Last Updated DateTime 2 160.02 cm 32.1 kg/m2 63081.6 2 g 97.3 [degF] 76 /min 114 mm[Hg] 44 mm[Hg] Merle Vargas [facility] 10:33:50 Social History None recorded. Functional Status None recorded. Mental Status None recorded. Family History Relationship Description Onset Age of this Age Resolved Age Notes LastModified by Organization Details LastModified Time Mother Family history of breast cancer [email or web address] Not available 2021 12:41:18 Father Hypertensive disorder Not available 2021 12:41:37 Brother Hypertensive disorder [email or web address] Not available 2021 12:41:46 Brother Diabetes mellitus [email or web address] Not available 2021 12:42:03 Medical History Condition Response Diabetes Y Kidney Disease Y Sleep Disorder Y Gynecological HistoryNo gynecological history recorded. Obstetrics History GPAL:G 0 P 0 0 0 0 Past Encounters Encounter ID Performer Location Encounter Start Date Encounter Closed Date Diagnosis/Indication Diagnosis SNOMED-CT Code Diagnosis ICD10 Code Diagnosis Note [id number] MD WILLIAM ZURITA [facility] CLOSED [address] [place] [address] 08/14/2021 12:26:20 08/19/2021 23:07:45 Otalgia of right ear 3942037705 H92.01 -REFERRED. 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 08/14/21 SCOPE REVEALS NO CONCERNING MASSES-NEE DS CT NECK W/ CONTRAST: NO CONCERNING MASSES-08/31 symptoms have resolved. If symptoms return may recheck with me and consider neurology consult Temporoman dibular joint disorder 15864939 M26.609 SUSPECT MILD Neuralgia 54153259 M79.2 Cervico-oc cipital neuralgia 24049319 M54.81 -RIGHT Thyroid nodule 154540416 E04.1 09/18/2021 recommend thyroid ultrasound . Incidental finding on CT for other reason. Recheck with results [id number] MD WILLIAM ZURITA ENT [facility] CLOSED [address] [place] [address] 10/02/2021 10:27:21 10/02/2021 11:02:31 Thyroid nodule 422130441 E04.1 09/18/2021 recommend thyroid ultrasound . Incidental finding on CT for other reason. Recheck with results10/02 U/s results reviewed right Nodule 2.4 cm. Recommend FNA suspicious right thyroid nodule recheck with results Otalgia of right ear 949 3330043 H92.01 -REFERRED. 08/14/21 SCOPE REVEALS NO CONCERNING MASSES-NEE DS CT NECK W/ CONTRAST: NO CONCERNING MASSES-08/31 symptoms have resolved. If symptoms return may recheck with me and consider neurology consult Temporoman dibular joint disorder 36045981 M26.609 SUSPECT MILD Neuralgia 71490222 M79.2 Cervico-oc cipital neuralgia 62546808 M54.81 -RIGHT Health Concerns Section Related Observation LastModified by Organization Detai ls LastModified Time None Recorded Concern Status LastModified by Organization Details LastModified Time None Recorded Advance Directives Directive None Recorded Payers Insurance Date Sequence Insurance Name Policy Number Policy Nagy Covered Member ID Nagy Member ID Guarantor Name 08/14/2021 2 Knowledge Factor (MEDICARE SUPPLEMENT) Shana Cm [id number] Shana Cm 09/05/2023 1 MEDICARE-[place] (MEDICARE) Shana Cm [id number] Shana Cm Notes Date Note Type Note Provider Name and Address Organization Details Recorded Time 08/14/2021 text/html I am seeing this patient today in consultation at the request of my colleague Dr. Delvis Hunter for EAR concerns. Patient reportsEarache in Right ear. Symptoms have been going on for several weeks to months now. The pain occurs much of the time. She points to her right ear and the back of her head on the right. PMH: No major medical problems or surgeries Social Hx: lives with family Family Hx: no early hearing loss SARBJIT GONZALES MD [address] [place] [address], [address], [facility] 08/14/2021 13:27:12 09/18/2021 text/html This patient ret urns for recheck of EARS NOSE THROAT NEC K SINUS HEADACHE ALL ERGIES multiple ENT concerns CT Scan result. Since last visit patient reports resolution in symptoms with time. SARBJIT GONZALES MD [address] [place] [address], [address], [facility] 09/18/2021 14:17:58 10/02/2021 text/html This patient ret urns for recheck of EARS NOSE THROAT NEC K SINUS HEADACHE ALL ERGIES multiple ENT concerns thyroid. Shana denies any pain or trouble swallowing since last visit. US Thyroid performed since last visit SARBJIT GONZALES MD [address] [place] [address], [address], [facility] 10/02/2021 15:49:29 OBGyn Episode No OBEpisode recorded.
[2024-10-02 15:03] LABS: Creatinine,Urine Random 284 mg/dL (Not Estab.)
[2024-10-02 15:04] LABS: Albumin Level 4.1 g/dl (3.5-5.0); Anion Gap 9.1 mEq/L (5-15); Blood Urea Nitrogen 27 mg/dl (7-17); Calcium 9.6 mg/dl (8.4-10.2); Carbon Dioxide 29 mmol/L (22.0-30.0); Chloride 105 mmol/L (98-107); Estimated Glomerular Filt Rate 43 ml/min (>60); GFR (African American) 52 ML/MIN (>60); Glucose 106 mg/dl (74-100); Phosphorous 3.3 mg/dl (2.5-4.5); Potassium 5.1 mmoL/L (3.5-5.1); Sodium 138 mmol/L (136-145)
[2024-10-02 15:07] LABS: Microalbumin/Creatinine Ratio 63.9
[2024-10-02 15:18] LABS: 25-OH Vitamin D, Total 52.8 ng/mL (30-100)
[2024-10-05 22:16] LABS: C-Telopeptide Serum 411 pg/mL (.)
== END 2024-10-02 23:59 | disposition home or self-care (01) ==
LOC: LAB 13:50
PROVIDERS: PCP Internal Medicine; Visit Provider Internal Medicine Nephrology
DX: N18.32 Chronic kidney disease, stage 3b (principal); M81.0 Age-related osteoporosis without current pathological fracture
CPT/HCPCS: 36415; 80069; 82043; 82306; 82523; 82570; 84080

== ENCOUNTER 2024-12-12 13:10 | Outpatient (CLI) | payer MEDICARE, SELFPAY ==
--- OUTSIDE RECORDS SUMMARY | 2024-12-12 13:13 | XMS_ITS | Clinical Summary ---
Author Organization [facility] Address [address] [facility] [address] [place] [address] Phone Care Team Providers Care Insulation Batting Machine Operator Name Role Phone Unavailable Unavailable Conditions or Problems No information available. Medications No information available. Medications Administered No information available. Allergies, Adverse Reactions, Alerts No information available. Results No information available. Plan of Care No information available. Procedures No information available. Vital Signs No information available. Immunizations No information available. Advance Directives No information available.
--- OUTSIDE RECORDS SUMMARY | 2024-12-12 13:14 | XMS_ITS | Clinical Summary ---
Author Organization Healthcare Address [address] [place] [id number] Care Team Providers Care Engineering Test Specialist Name Role Phone Delvis Colmenares MD Primary Care Provider [phone] Allergies Active Allergy Reactions Criticality Noted Date Comments Atorvastatin Unknown - Patient st ates they do not know rxn details Low 01/30/2019 Betamethasone Rash Low 12/08/2013 Elemental Sulfur Unknown - Patient st ates they do not know rxn details Low 01/30/2019 Naproxen Unknown - Patient st ates they do not know rxn details Low 01/30/2019 Sulfa Drugs Headache Low 09/05/2007 Medications albuterol 108 (90 Base) MCG/ACT inhaler INHALE 1 PUFF 4 TIMES EACH DAY NEEDED FOR SHORTNESS OF BREATH OR WHEEZING. 1 Active atenolol (Tenormin) 25 MG tablet TAKE 1 TABLET 1 TIME EACH DAY. 1 Active Azelastine HCl 0.15 % solution SPRAY 2 TIMES IN EACH NOSTRIL AT BEDTIME. 1 Active citalopram (CeleXA) 20 MG tablet TAKE 1 TABLET 1 TIME EACH DAY. 1 Active cholecalciferol (Vitamin D-3) 50 MCG (2000 UT) capsule 1 capsule (2,000 Units) 1 (one) time each day. 9 Active gabapentin (Neurontin) 300 MG capsule Take 1 capsule (300 mg) by mouth 1 (one) time each day in the morning. 1 Active fluticasone (Flonase) 50 MCG/ACT nasal spray SPRAY 1 TIME IN EACH NOSTRIL 1 TIME EACH DAY 1 Active hydroCHLOROthia zide (Microzide) 12.5 MG capsule TAKE 1 CAPSULE 1 TIME EACH DAY IN THE MORNING FOR BLOOD PRESSURE. 1 Active losartan (Cozaar) 100 MG tablet TAKE 1 TABLET 1 TIME EACH DAY. 1 Active lovastatin (Mevacor) 40 MG tablet Take 1 tablet (40 mg) by mouth every night. 1 Active Melatonin 10 MG tablet Take 10 mg by mouth if needed. 9 Active metFORMIN (Glucophage) 500 MG tablet TAKE 1 TABLET 2 TIMES EACH DAY. 1 Active Dulera 100-5 MCG/ACT inhaler INHALE 2 PUFFS 2 TIMES EACH DAY 1 Active acetaminophen (Tylenol) 500 MG tablet Take by mouth if needed. Active HYDROcodone-juan antonio taminophen ([place]) 7.5-325 MG tablet Take by mouth if needed. 2 Active esomeprazole (NexIUM) [address] capsule Take 1 capsule (20 mg) by mouth 1 (one) time each day before breakfast. 3 Active estradiol (Estrace) 0.1 MG/GM vaginal cream Apply a small pea-sized amount (0.5 gram) to the vagina daily 42.5 g 3 3 Active gabapentin (Neurontin) 300 MG capsule Take 2 capsules (600 mg) by mouth every night. Active amoxicillin (Amoxil) 500 MG capsule TAKE 2 CAPSULES 2 TIMES EACH DAY FOR 10 DAYS 3 Active furosemide (Lasix) 40 MG tablet TAKE 1 TABLET 1 TIME EACH DAY NEEDED FOR SWELLING 4 Active zolpidem (Ambien) 5 MG tablet TAKE 1 TABLET 1 TIME EACH DAY IN THE EVENING NEEDED FOR SLEEP 4 Active methenamine hippurate (Hiprex) 1 g tabletIndicatio ns:Recurrent UTI Take 1 tablet (1 g) by mouth 2 (two) times a day. Please keep on file 180 tablet 3 4 02/23/20 25 Active cyanocobalamin 1000 MCG tablet Take 1 tablet by mouth daily. Active Calcium Citrate-Vitamin D (Calcium Citrate + D3) 200-6.25 MG-MCG tablet Take by mouth. Activ e ibandronate (Boniva) 150 MG tablet Take 1 tablet by mouth every 30 days. Take in morning with full glass of water on an empty stomach. No food, drink, meds, or lying down for 60 minutes after. 3 tablet 1 Active Active Problems Problem Noted Date Diagnosed Date Neuropathy involving both lower extremities 08/02 Senile osteoporosis 01/16/2023 Recurrent UTI 01/23/2022 Asymptomatic postmenopausal status 06/17/2020 Postmenopausal atrophic vaginitis 03/22/2020 Painful urination 06/02/2019 Unaware of passing urine 02/28/2019 Pelvic floor dysfunction 02/24/2019 Neuropathy, diabetic 02/24/2019 Insomnia 02/24/2019 Chronic back pain 02/24/2019 Anxiety 02/24/2019 Hypertension 01/30/2019 High blood cholesterol 01/30/2019 Diabetes mellitus 01/30/2019 CKD (chronic kidney disease) stage 3, GFR 30-59 ml/min 12/28/2018 Encounters Date Type Department Care Team Description 10/13/2024 Telephone [facility] [address] [place] [address] Alex Jose, PharmD Prior-authorization/ insurance Verification 10/10/2024 Telephone [facility] Nephrology, [facility] Min[facility] Met[facility] [address], [address] [place] [address] Kyra Butt 10/09/2024 1:00 PM EDT Office Visit [facility]phrology, [facility] Metabolism [address], [address] [place] [address] Bozena Jimenez MD Stage 3b chronic kidney disease ([facility]/HCC) (Primary Dx); Essential hypertension; Age-related osteoporosis without current pathological fracture 10/09/2024 12:40 PM EDT - 10/09/2024 11:59 PM EDT Hospital Encounter [facility] [address], [address] [place] [address] Age-related osteoporosis without current pathological fracture; Stage 3b chronic kidney disease (CMS/HCC) Discharge Disposition: Home or Self Care 10/09/2024 Travel from Last 3 Months Immunizations Immunization Administration Dates Next Due Moderna COVID-19 Vaccine (Re d Cap) 12+ years 03/14/2021,07/25/2020,06/27/2020 Pneumococcal Polysaccharide PPV23 02/05/2021 Family History Medical History Relation Name Comments Breast cancer Mother Relation Name Status Comments Mother Social History Tobacco Use Types Packs/Day Years Used Date Smoking Tobacco: Never Passive Smoke Exposure: Never Smokeless Tobacco: Never Tobacco Cessation:Counseling Given: Not Answered Alcohol Use Standard Drinks/Week Comments Never 0 (1 standard drink = 0.6 oz pur e alcohol) PHQ-2 Answer Date Recorded Patient Health Questionnaire-2 Score 0 02/23/2024 AUDIT-C Answer Date Recorded Q1: How often do you have a drink containing alcohol? Never 10/09/2024 Q2: How many drinks containi ng alcohol do you have on a typical day when you are drinking? Patient does not drink Q3: How often do you have si x or more drinks on one occasion? Never 10/09/2024 PHQ-2A Answer Date Recorded Depression Risk 0 10/29/2023 Comments No Sex and Gender Information Value Date Recorded Sex Assigned at Not on file Legal Sex Female 5:58 PM EDT Gender Identity Not on file Sexual Orientation Not on file Last Filed Vital Signs Vital Sign Reading Time Taken Comments Blood Pressure 113/71 10/09/2024 1:08 PM EDT Pulse 57 10/09/2024 1:08 PM EDT Temperature 36.7 C (98.1 F) 10/09/2024 1:08 PM EDT Respiratory Rate 18 10/09/2024 1:08 PM EDT Oxygen Saturation 94% 10/09/2024 1:08 PM EDT Inhaled Oxygen Concentration - - Weight 81.6 kg (179 lb 14.3 oz) 10/09/2024 1:08 PM EDT Height 160 cm (5' 3 ) 10/09/2024 1:08 PM EDT Body Mass Index 31.87 10/09/2024 1:08 PM EDT Plan of Treatment Upcoming Encounters Date Type Department Care Team (Late st Contact Info) Description 04/16/2025 10:40 AM EST Office Visit [facility] [address] , [address] [place] [address] Luis Felipe Avendaño MD [address] [facility] [address] [place] [address] Health Maintenance Due Date Last Done Comments [facility]-Diabetes: Hemoglobin A1C 1941 [facility]-Medicare Annual Wellness (AWV) 1941 [facility]-Infant/Child/Adol SDOH Screenings 1941 Diabetes: Dental Exam 1951 [facility]- SDOH Screenings 1959 [facility]-Adult SDOH Screenings 1959 [facility]-Zoster Vaccines (1 of 2) 1991 [facility]-Pneumococcal Vaccine: 50+ Years (2 of 2 - PCV) 02/05/2022 02/05/2021 [id number] Vaccine ( - season) 2024 05/20/2022, 03/14/2021, 07/25/2020, Additional history exists [facility]-Influenza Vaccine (#1) 2025 03/09/2024 [facility]-Depression Screening 02/22/2025 02/23/2024, 10/02 [facility]-Bone Density Scan 10/09/2025 10/09/2024 [facility]-DTaP,Tdap,and Td Vaccines (2 - Td or Tdap) 06/16/2034 06/16/2024 [facility]-RSV Vaccine: 60+ Years or Completed 03/20/2024 [facility]-Obesity Intervention Completed 025, 02/23/2024, 01/10/2024, Additional history exists HPV Vaccines Aged Out No longer eligi ble based on patient's age to complete this topic [facility]-HIB Vaccines Aged Out No longer e ligible based on patient's age to complete this topic [facility]-Hepatitis A Vaccines Aged Out No longer eligible based on patient's age to complete this topic [facility]-IPV Vaccines Aged Out No longer e ligible based on patient's age to complete this topic [facility]-Rotavirus Vaccines Aged Out No lo nger eligible based on patient's age to complete this topic Procedures Procedure Name Priority Date/Time Associated Diagnosis Comments DEXA BONE DENSITY Routine 10/09/2024 12: 43 PM EDT Age-related osteoporosis without current pathological fracture Stage 3b chronic kidney disease (CMS/HCC) from Last 3 Months Results * Dexa Bone Density (10/09/2024 12:43 PM EDT) Anatomical Region Laterality Modality L-spine Radiographic Elle ging Narrative 10/13/2024 4:14 PM EDT [facility] [address] [place] [address], [place] [address] DXA Bone Densitometry Report: [Date of exam] BMD test performed using the [employer] DXA System (analysis version: 14.10) manufactured by [employer]. REFERRING PROVIDER: Dr. Luis Felipe Avendaño MD CLINICAL INFORMATION: PATIENT NAME: Shana Wood PATIENT AGE: 84 y.o. LEGAL SEX: female RADIOGRAPHIC VIEWS: Sites scanned: AP Spine, HIP Right , HIP Left, and RADIUS Left COMPARISON STUDY: DXA Axial Prior studies are not available for comparison FINDINGS: Based on WHO criteria (post-menopausal female) the diagnosis is Osteopenia The lowest T score is -1.9 in the LFA FRAX (10-year probability of fracture) - Major Osteoporotic: 12.8 %; Hip: 3.3 % The presence of arthritic or degenerative joint changes in the spine could artefactually increase measured BMD. The number of available measurements/sites limits adequate interpretation TBS: The TBS L1-L4 of 1.285 indicates partially degraded microarchitecture TREATMENT RECOMMENDATIONS: Treatment decisions should be based on clinical indications. Suggest general measures to optimize calcium and vitamin D status, fall prevention measures and reduce fracture risk. FRAX threshold met for consideration of therapy (Hip >3% or Total >20%) Consider repeat BMD in 2-3 years Luis Felipe Avendaño MD IMG DXA PROCEDURES Final Resu lt from Last 3 Months Insurance MEDICARE GENERIC COMMERCIAL Care Teams Engineering Test Specialist Relationship Specialty Start Date End Date Delvis Colmenares MD [address] [place] [address] [address] [place] [address] PCP - General 09/13/20
--- OUTSIDE RECORDS SUMMARY | 2024-12-12 13:14 | XMS_ITS | Clinical Summary ---
Author Organization [facility] Address [address] [place] [address] Care Team Providers Care Spinner Hand Name Role Phone Delvis Colmenares MD Primary Care Provider [phone] Family History Medical History Relation Name Comments Breast cancer Mother Ovarian cancer Neg Hx Relation Name Status Comments Mother Social History Tobacco Use Types Packs/Day Years Used Date Smoking Tobacco: Never Assessed Abuse Screen Answer Date Recorded Unsafe at Home or Work/School Not on file Feels Threatened by Someone? Not on file 01/2023 Does Anyone Keep You from Co ntacting Others or Doint Things Outside the Home? Not on file 02/08/2023 Physical Sign of Abuse Present Not on file 1 Housing Stability Answer Date Recorded Current Living Arrangements Not on file 01/2023 Potentially Unsafe Housing Conditions Not on yanna e 02/08/2023 Family and Community Support Answer Yaw e Recorded Help with Day-to-Day Activities Not on file 02/08/2023 Lonely or Isolated Not on file 02/08/2023 Employment Answer Date Recorded Do you want help finding or keeping work or a sara b? Not on file 02/08/2023 Disabilities Answer Date Recorded Concentrating, Remembering, or Making Decisions Difficulty Not on file 02/08/2023 Doing Errands Independently Difficulty Not on fi le 02/08/2023 Education Answer Date Recorded Help with school or training? Not on file Preferred Language Not on file 02/08/2023 Comments No Sex and Gender Information Value Date Recorded Sex Assigned at Not on file Legal Sex Female 10:07 AM EDT Gender Identity Not on file Sexual Orientation Not on file Plan of Treatment Health Maintenance Due Date Last Done Comments ANNUAL PHYSICAL 1940 DXA SCAN 1940 TDAP/TD VACCINES (1 - Tdap) 01/04/1960 ZOSTER VACCINE (1 of 2) 1991 RSV Vaccine - Adults (1 - 1- dose 75+ series) 01/04/2016 Pneumococcal Vaccine 50+ (2 of 2 - PCV) 02/05/2022 02/05/2021 COVID-19 Vaccine ( - season) 2024 03/14/2021, 07/25/2020, 06/27/2020 INFLUENZA VACCINE 01/31/2025 Insurance MEDICARE A & B [facility] Care Teams Spinner Hand Relationship Specialty Start Date End Date Delvis Colmenares MD [address] [facility] [address] [place] [address] PCP - General Internal Medicine 12/25/19
--- OUTSIDE RECORDS SUMMARY | 2024-12-12 13:14 | XMS_ITS | Encounter Summary ---
Author Organization Healthcare Address [address] [place] [address] Care Team Providers Care Supervisor Typesetting Name Role Phone Delvis Colmenares MD Primary Care Provider [phone] Reason for Visit * Reason Onset Date Comments Prior-authorization/insurance Verification 10/13 Encounter Details Date Type Department Care Team (Late st Contact Info) Description 10/13/2024 Telephone [facility] [address] [place] [phone] Alex Jose, PharmD Prior-authorization/ins urance Verification Social History Tobacco Use Types Packs/Day Years Used Date Smoking Tobacco: Never Passive Smoke Exposure: Never Smokeless Tobacco: Never Alcohol Use Standard Drinks/Week Comments Never 0 [...] on file Sexual Orientation Not on file documented as of this encounter Miscellaneous Notes * Addendum Note - Manny Ahumada, PharmD - 10/13/2024 12:56 PM EDTAddended by: MANNY AHUMADA on: 10/13/2024 12:56 PM Modules accepted: Orders documented in this encounter Plan of Treatment Upcoming Encounters Date Type Department Care Team ([facility] st Contact Info) Description 04/16/2025 10:40 AM EST Office Visit [facility] [address], [address] [place] [address] Luis Felipe Avendaño MD [address] [place] [address] documented as of this encounter Visit Diagnoses Not on filedocumented in this encounter Additional Health Concerns Assessment Noted Time A fall risk assessment has been complete d for the patient 10/09/2024 1:19 PM EDT A Body Mass Index follow-up plan has been documented for the patient 10/09/2024 3:51 PM EDT documented as of this encounter Care Teams Supervisor Typesetting Relationship Specialty Start Date End Date Delvis Colmenares MD [facility] [address] [place] [address] PCP - General 09/13/20 documented as of this encounter
--- NOTE | 2024-12-12 14:00 | CA_ITS ---
FINAL REPORT TECHNIQUE: Compression sarkar scale and Doppler evaluation CLINICAL HISTORY: DM, HTN, HLD, R knee pain and edema x several weeks, 08/01/24 R knee cortisone injection FINDINGS: Femoral and popliteal veins show normal compressibility and flow. Visualized portion of the calf veins are patent by Doppler exam. IMPRESSION: No evidence of right lower extremity deep venous thrombosis Reviewed, Interpreted and Dictated by Yo Loomis MD Transcribed by Karla Caldera Authenticated and [facility]
== END 2024-12-12 23:59 | disposition home or self-care (01) ==
LOC: RT 13:12
PROVIDERS: PCP Internal Medicine; Visit Provider Internal Medicine
DX: M79.661 Pain in right lower leg (principal); M79.89 Other specified soft tissue disorders; E11.9 Type 2 diabetes mellitus without complications; I10 Essential (primary) hypertension; E78.5 Hyperlipidemia, unspecified; Z98.890 Other specified postprocedural states
CPT/HCPCS: 93971

== ENCOUNTER 2025-01-16 11:10 | Outpatient (CLI) | payer MEDICARE, SELFPAY ==
[2025-01-16 14:42] LABS: Hematocrit 35.8 % (37.0-47.0); Hemoglobin 10.9 g/dL (12.2-16.2); Immature Granulocytes % 0.4 %; Mean Corpuscular HGB Conc 30.4 g/dL (31.8-35.4); Mean Corpuscular Hemoglobin 29.7 pg (27.0-31.2); Mean Corpuscular Volume 97.5 fl (81-99); Nucleated Red Blood Cells % 0 %; Platelet Count 236 K/mm3 (142-424); Red Blood Count 3.67 M/mm3 (4.20-5.40); Red Cell Distribution Width-SD 46.4 fL; White Blood Count 5.5 K/mm3 (4.8-10.8)
[2025-01-16 16:01] LABS: Alanine Aminotransferase 9 U/L (12-78); Albumin Level 4.0 g/dl (3.5-5.0); Albumin/Globulin Ratio 1.8 (1.1-1.8); Alkaline Phosphatase 79 U/L (38-126); Anion Gap 12.1 mEq/L (5-15); Aspartate Amino Transferase 18 U/L (14-36); Bilirubin,Total 0.4 mg/dl (0.2-1.3); Blood Urea Nitrogen 41 mg/dl (7-17); Calcium 8.5 mg/dl (8.4-10.2); Carbon Dioxide 26 mmol/L (22.0-30.0); Chloride 105 mmol/L (98-107); Cholesterol 159 mg/dl (140-200); Creatinine,Serum 1.20 mg/dl (0.52-1.04); Estimated Glomerular Filt Rate 43 ml/min (>60); GFR (African American) 52 ML/MIN (>60); Globulin 2.2 g/dL (1.3-3.2); Glucose 117 mg/dl (74-100); HDL Cholesterol 53 mg/dl (40-60); Potassium 5.1 mmoL/L (3.5-5.1); Sodium 138 mmol/L (136-145); Total Protein,Serum 6.2 g/dl (6.3-8.2); Triglycerides 137 mg/dl (30-150)
[2025-01-16 16:17] LABS: Hemoglobin A1C 6.2 % (4.0-6.0)
--- OUTSIDE RECORDS SUMMARY | 2025-01-17 12:16 | XMS_ITS | Clinical Summary ---
Author Organization [facility] Address [address] [place] [address] Phone Care Team Providers Care Ground Water Contractor Name Role Phone Unavailable Unavailable Conditions or Problems No information available. Medications No information available. Medications Administered No information available. Allergies, Adverse Reactions, Alerts No information available. Results No information available. Plan of Care No information available. Procedures No information available. Vital Signs No information available. Immunizations No information available. Advance Directives No information available.
--- OUTSIDE RECORDS SUMMARY | 2025-01-17 12:16 | XMS_ITS | Clinical Summary ---
Author Organization Healthcare Address [address] [place] [id number] Care Team Providers Care Graphic Pre Press Trades Worker Name Role Phone Delvis Colmenares MD Primary Care Provider Allergies Active Allergy Reactions Criticality Noted Date [...] mouth if needed. Active HYDROcodone-juan antonio taminophen ([place]rono) 7.5-325 MG tablet Take by mouth if [...] for 60 minutes after. 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 12/28/2018 Immunizations Immunization Administration Dates Next Due Moderna [...] 04/16/2025 10:40 AM EST Office Visit [facility] [address] [place] [address] Luis Felipe Avendaño MD [address] [place] [address] Health Maintenance Due Date Last Done Comments [facility]-Diabetes: Hemoglobin A1C 1940 [facility]-Medicare Annual Wellness (AWV) 1941 [facility]-/Child/Adol SDOH Screenings 1941 Diabetes: Dental Exam 1951 [facility]- SDOH Screenings 1959 [facility]-Adult SDOH Screenings 1959 [facility]-Zoster Vaccines (1 of 2) 1991 [facility]-Pneumococcal Vaccine: 50+ Years (2 of 2 - PCV) 02/05/2022 02/05/2021 [id number] Vaccine ( - season) 2025 05/20/2022, 03/14/2021, 07/25/2020, Additional history exists [facility]-Influenza [...] kidney disease (CMS/HCC) from Last 3 Months or Most Recently Relevant to Health Maintenance Results * Dexa Bone Density (10/09/2024 12:43 PM EDT) Anatomical Region Laterality Modality L-spine Radiographic Elle ging Narrative 10/13/2024 4:14 PM EDT [facility] [address] [place] [address] DXA Bone Densitometry Report: [Date of exam] BMD test performed using the Monkey BiznessXA DXA System (analysis version: 14.10) manufactured by [employer]. REFERRING PROVIDER: Dr. Luis Felipe Avendaño MD [...] >20%) Consider repeat BMD in 2-3 years us Luis Felipe Avendaño MD IMG DXA PROCEDURES Final Resu lt from Last 3 Months or Most Recently Relevant to Health Maintenance Insurance MEDICARE GENERIC COMM[employer]CIAL Care Teams Graphic Pre Press Trades Worker Relationship Specialty Start Date End Date Delvis Colmenares MD [address] [facility] [address] [place] [address] PCP - General 09/13/20
--- OUTSIDE RECORDS SUMMARY | 2025-01-17 12:16 | XMS_ITS | Patient Health Record ---
Author Organization [facility] Address [address] [facility] [address] [place] [address] Care Team Providers Care Mathematician Name Role Phone Capri Coyle Unavailable [phone] Allergies Allergen (clinical drug ingredient) Drug/Non Drug Allergy documented on EMR Reaction Allergy Type Onset Date Status ROSEY LIPITER (uncoded) Unspecified Allergy 10/12/2019 Active sulfamethoxazole / trimethoprim SULFAMETHOXAZOLE-T RIMETHOPRIM Unspecified Drug Allergy 10/12/2019 Active atorvastatin LIPITOR (uncoded) Unspecified Allergy Active naproxen NAPROXEN (uncoded) Unspecified Allergy 0 Active Reason For Referral No Information Problems Problem Type SNOMED Code ICD Code Onset Dates Problem Status W/U Status Risk Notes Problem Atrophic vaginitis (85853300) Atrophic vaginitis (N95.2) Active confirmed Vaginal atrophy Problem Urge incontinence of urine (05563278) Urge incontinence (N39.41) Active confirmed Urinary incontinence, urge Problem Hormone replacement therapy (321783659) Counseling for estrogen replacement therapy (Z79.890) Active confirmed Hormone replacement therapy Problem Menopause (846339355) *Menopausal and female climacteric states (Code also, associated symptoms) (N95.1) Active confirmed Menopausal and female climacteric states Problem Anxiety about health (761134154) Anxiety about health (F41.8) Active confirmed Anxiety depression Problem Gynecological examination abnormal (53888864339162 3) *Coordinator Integrated Marketing exam with abnormal finding (Code also - abnormal finding(s) (Z01.411) Active confirmed Annual with abnormal findings Problem Cervix prolapsed into vagina (758544285) 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 Active confirmed Pelvic Organ Prolapse Problem Allergic cough (741568027) Allergic cough (R05) 020 Active confirmed Chronic cough Problem Confusional state (disorder) (055567608) 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 Plan Of Treatment No Information Medical (General) History Medical History History ICD Code Diabetes endometriosis rectocele Estrace 0.01% (0.1 mg/gram) cream, INTO VAGINA TRAMADOL HCL 50MG PRN TYLENOL EXTRA STRENGTH PRN VITAMIN D3 2000IU QD MELATONIN 10MG QHS LOVASTATIN 20MG QD LISINOPRIL-HCTZ 20-25MG QD METFORMIN HCL 500MG BID GABAPENTIN 300MG BID GLUCOSAMINE SULFATE 500MG BID ATENOLOL 25MG QD citalopram 20 mg tablet Surgical History Surgery Date(Month/Year) DULCE MARIA/BSO Laparoscopy Bladder sx August 1998 and October 2006 Rectocele May 2004 Bunion Sx August 2010 Skin Cancer removal labial 2008 and 2011 Gall bladder Cataract [id number] Sacrocolpopexy
--- OUTSIDE RECORDS SUMMARY | 2025-01-17 12:16 | XMS_ITS | Clinical Summary ---
Author Organization [facility] Address [address] [place] [address] Care Team Providers Care Behavioral Intervention Specialist Name Role Phone Delvis Colmenares MD Primary Care Provider [phone] Family History Medical History Relation Name Comments [...] 2 - PCV) 02/05/2022 02/05/2021 COVID-19 Vaccine (4 - season) 2025 03/14/2021, 07/25/2020, 06/27/2020 INFLUENZA VACCINE 01/31/2025 Insurance MEDICARE A & B [facility] Care Teams Behavioral Intervention Specialist Relationship Specialty Start Date End Date Delvis Colmenares MD [address] [facility] [address] [place] [address] PCP - General Internal Medicine 12/25/19
== END 2025-01-16 23:59 ==
LOC: LAB.DROPOF 01-17 12:14
PROVIDERS: PCP Internal Medicine; Visit Provider Internal Medicine
DX: E11.42 Type 2 diabetes mellitus with diabetic polyneuropathy (principal); E78.5 Hyperlipidemia, unspecified; I12.9 Hypertensive chronic kidney disease with stage 1 through stage 4 chronic kidney disease, or unspecified chronic kidney disease; N18.32 Chronic kidney disease, stage 3b
CPT/HCPCS: 80053; 80061; 83036; 85025